=== PATIENT | male | born 1980 | race Caucasian/White ===

== ENCOUNTER 2017-02-04 14:20 | Emergency (ER) | payer OTHER ==
[~2017-02-04] VITALS: Wt 102.1 kg
[~2017-02-04 14:20] MED LIST: "\\\"BP PILL\\\""; AMBIEN5 MG PO; ANAPROX DS550 MG PO; ASCRIPTIN1 TAB PO; ASPI-COR81 M1 PO; ATIVAN1 MG PO; BACTRIM DS 8001 TA1 PO; COREG CR20 MG PO; CYCLOBENZAPRINE10 MG PO; DARVOCET N 1001 TAB PO; FLEXERIL10 MG PO; HUMALOG100 U/ML SC; HUMULIN 70/30 703 M1 SQ; HYCODAN/HYDROMET5 ML PO; HYDROCODONE BIT1 T11 PO; IBU-8800 MG PO; KEFLEX500 MG PO; LANTUS100 U/ML SC; LIPITOR10 MG PO; LISINOPRIL; LISINOPRIL10 MG PO; LISINOPRIL5 MG PO; MEDROL DOSEPAK4 MG PO; MOBIC; MOBIC7.5 MG PO; MOTRIN800 MG PO; PRINIVIL10 MG PO; ROBAXIN500 MG PO; VICODIN 5/500 505 MG PO; VICODIN ES 7501 TAB PO; XANAX; XANAX0.5 MG PO; XANAX1 MG PO; ZITHROMAX Z PA250 MG PO; ZOFRAN ODT8 MG PO
[2017-02-04] MEDS ORDERED: HYDROCODONE BIT1 T11 PO (16:17)
== END 2017-02-04 16:27 | disposition home or self-care (01) ==
LOC: ED 14:20
DX: G89.29 Other chronic pain (principal); M54.5 Low back pain; F17.200 Nicotine dependence, unspecified, uncomplicated; Z90.49 Acquired absence of other specified parts of digestive tract; Z98.890 Other specified postprocedural states; Z79.899 Other long term (current) drug therapy

== ENCOUNTER 2017-02-17 15:53 | Inpatient (IN) | payer OTHER ==
[~2017-02-17] VITALS: Ht 182.8 cm; Wt 104.8 kg
[2017-02-17 15:58] VITALS: BP 126/84
[2017-02-17 16:46] LABS: BASO % 0.1 % (0.0-1.0); EOS % 0.2 % (1.0-4.0); HEMATOCRIT 44.3 % (42.0-52.0); HEMOGLOBIN 15.8 g/dl (14.0-18.0); IG # 0.1 10*3/uL (0.0-0.1); LYMPH # 1.1 10*3/uL (1.3-4.4); LYMPH % 9.5 % (27.0-41.0); MEAN CELL VOLUME 82.8 fl (80.0-94.0); MEAN CORPUSCULAR HGB 29.5 pg (27.0-31.0); MEAN CORPUSCULAR HGB CONC 35.7 g/dl (33.0-37.0); MEAN PLATELET VOLUME 9.8 fl (9.6-12.3); MONO # 0.9 10*3/uL (0.1-1.0); MONO % 8.1 % (3.0-9.0); NEUT # 9.5 10*3/uL (2.3-7.9); NEUT % 81.7 % (47.0-73.0); PLATELET COUNT AUTOMATED 214 10*3/uL (130-400); RED BLOOD COUNT 5.35 10*6/uL (4.50-5.90); RED CELL DISTRI WIDTH 11.9 % (0-14.5); WHITE BLOOD COUNT 11.6 10*3/uL (4.8-10.8)
[2017-02-17 16:53] LABS: BILIRUBIN NEGATIVE (NEGATIVE); BLOOD NEGATIVE (NEGATIVE); CLARITY CLEAR (CLEAR); COLOR YELLOW (YELLOW); GLUCOSE 3+ (NEGATIVE); KETONE NEGATIVE (NEGATIVE); LEUKO ESTERASE NEGATIVE (NEGATIVE); NITRITE NEGATIVE (NEGATIVE); PH 5.5 (5.0-9.0); PROTEIN NEGATIVE (NEGATIVE); SPECIFIC GRAVITY <= 1.005 (1.005-1.030); UROBILINOGEN 0.2 E.U./dl (0.2-1.0)
[2017-02-17 17:05] LABS: BACTERIA TRACE; URINE REFLEX COMMENT NO (NO); WBC 0-2 wbc/hpf (0-5)
[2017-02-17 17:06] LABS: ALBUMIN 3.6 gm/dl (3.1-4.5); ALKALINE PHOSPHATASE 174 U/L (45-117); BILIRUBIN, TOTAL 0.6 mg/dl (0.2-1.0); BUN 13 mg/dl (7-24); CARBON DIOXIDE 23 mmol/L (21-32); CHLORIDE 93 mmol/L (98-107); EST GLOM FILT AFRICAN AMERICAN > 60 ml/min; POTASSIUM 4.5 mmol/L (3.5-5.1); SGOT/AST 15 IU/L (3-35); SGPT/ALT 34 U/L (12-78); SODIUM 126 mmol/L (136-145); TOTAL PROTEIN 7.4 gm/dL (6.4-8.2)
[2017-02-17 17:24] LABS: GLUCOSE 557 mg/dL (65-99)
[2017-02-17 18:44] LABS: LA>2 REFLEX 2 HR DRAW NOW
[2017-02-17 21:14] VITALS: BP 124/82
[2017-02-17 21:55] VITALS: BP 134/77
[2017-02-17 22:24] LABS: BUN 13 mg/dl (7-24); CARBON DIOXIDE 23 mmol/L (21-32); CHLORIDE 103 mmol/L (98-107); EST GLOM FILT AFRICAN AMERICAN > 60 ml/min; GLUCOSE 397 mg/dL (65-99); POTASSIUM 4.7 mmol/L (3.5-5.1); SODIUM 134 mmol/L (136-145)
[2017-02-17] MEDS ORDERED: HUMALOG100 UNIT/1 SQ (23:24)
[2017-02-17] MEDS ORDERED: INVOKANA100 M1 PO (23:26)
[2017-02-18] VITALS: BP 102/69
[2017-02-18 01:03] LABS: BUN 11 mg/dl (7-24); CARBON DIOXIDE 25 mmol/L (21-32); CHLORIDE 106 mmol/L (98-107); EST GLOM FILT AFRICAN AMERICAN > 60 ml/min; GLUCOSE 207 mg/dL (65-99); POTASSIUM 3.9 mmol/L (3.5-5.1); SODIUM 137 mmol/L (136-145)
[2017-02-18 03:15] LABS: BUN 12 mg/dl (7-24); CARBON DIOXIDE 27 mmol/L (21-32); CHLORIDE 107 mmol/L (98-107); EST GLOM FILT AFRICAN AMERICAN > 60 ml/min; GLUCOSE 121 mg/dL (65-99); POTASSIUM 3.7 mmol/L (3.5-5.1); SODIUM 142 mmol/L (136-145)
[2017-02-18 06:24] LABS: BASO # 0.1 10*3/uL (0.0-0.1); BASO % 0.6 % (0.0-1.0); EOS # 0.2 10*3/uL (0.0-0.4); EOS % 1.8 % (1.0-4.0); HEMATOCRIT 43.2 % (42.0-52.0); HEMOGLOBIN 14.6 g/dl (14.0-18.0); LYMPH # 1.8 10*3/uL (1.3-4.4); LYMPH % 20.8 % (27.0-41.0); MEAN CELL VOLUME 84.2 fl (80.0-94.0); MEAN CORPUSCULAR HGB 28.5 pg (27.0-31.0); MEAN CORPUSCULAR HGB CONC 33.8 g/dl (33.0-37.0); MEAN PLATELET VOLUME 9.7 fl (9.6-12.3); MONO # 1.2 10*3/uL (0.1-1.0); NEUT # 5.3 10*3/uL (2.3-7.9); NEUT % 62.4 % (47.0-73.0); PLATELET COUNT AUTOMATED 220 10*3/uL (130-400); RED BLOOD COUNT 5.13 10*6/uL (4.50-5.90); RED CELL DISTRI WIDTH 12.1 % (0-14.5); WHITE BLOOD COUNT 8.5 10*3/uL (4.8-10.8)
[2017-02-18 06:58] LABS: ALBUMIN 3.1 gm/dl (3.1-4.5); ALKALINE PHOSPHATASE 115 U/L (45-117); BILIRUBIN, TOTAL 0.3 mg/dl (0.2-1.0); BUN 13 mg/dl (7-24); CARBON DIOXIDE 26 mmol/L (21-32); CHLORIDE 110 mmol/L (98-107); CHOLESTEROL 148 mg/dL (<200); EST GLOM FILT AFRICAN AMERICAN > 60 ml/min; FREE T4 0.94 ng/dl (0.76-1.46); GLUCOSE 93 mg/dL (65-99); MAGNESIUM 2.2 mg/dL (1.5-2.1); PHOSPHOROUS 3.5 mg/dL (2.5-4.9); POTASSIUM 3.9 mmol/L (3.5-5.1); PROTHROMBIN TIME 10.3 SECONDS (9.0-12.4); SGOT/AST 16 IU/L (3-35); SGPT/ALT 28 U/L (12-78); SODIUM 143 mmol/L (136-145); TOTAL PROTEIN 6.6 gm/dL (6.4-8.2); TRIGLYCERIDES 219 mg/dl (<150); VLDL CHOLESTEROL 44 mg/dL (6-40)
[2017-02-18 07:02] LABS: HDL CHOLESTEROL 39 mg/dl (40-60); LDL CHOLESTEROL 65 mg/dL (9-159)
[2017-02-18 07:21] LABS: HEMOGLOBIN A1c 10.9 % (4.8-5.6)
[2017-02-18 07:51] LABS: FOLIC ACID 21.32 ng/mL (>5.38); VITAMIN D, 25-HYDROXY 22.9 ng/mL (30-100)
[2017-02-18 08:00] VITALS: BP 125/66
[2017-02-18] MEDS ORDERED: POLYTRIM 1000010 ML OPH (10:54)
== END 2017-02-18 12:11 | disposition home or self-care (01) | DRG 391 ==
LOC: ED 15:53 → EDHOLD 20:23 → 5E 20:23 → EDHOLD 21:23 → 5E 21:34
PROVIDERS: Internal Medicine; Physician Assistant
DX: A08.4 Viral intestinal infection, unspecified (principal); E11.00 Type 2 diabetes mellitus with hyperosmolarity without nonketotic hyperglycemic-hyperosmolar coma (NKHHC); E44.0 Moderate protein-calorie malnutrition; R65.10 Systemic inflammatory response syndrome (SIRS) of non-infectious origin without acute organ dysfunction; E87.1 Hypo-osmolality and hyponatremia; H10.33 Unspecified acute conjunctivitis, bilateral; M54.16 Radiculopathy, lumbar region; F41.9 Anxiety disorder, unspecified; E86.0 Dehydration; K59.00 Constipation, unspecified; K58.0 Irritable bowel syndrome with diarrhea; K29.70 Gastritis, unspecified, without bleeding; Z79.4 Long term (current) use of insulin; Z90.49 Acquired absence of other specified parts of digestive tract; Z82.49 Family history of ischemic heart disease and other diseases of the circulatory system; Z79.899 Other long term (current) drug therapy; Z68.31 Body mass index [BMI] 31.0-31.9, adult

== ENCOUNTER → 2017-05-29 | Day surgery (SDC) | payer OTHER ==
[~2017-05-29] VITALS: Ht 185.4 cm; Wt 103.0 kg
[~2017-05-29] MED LIST changes: +BASAGLAR K100 UNIT/1 SC; +HUMALOG100 UNIT/1 SQ; +INVOKANA100 M1 PO; +NORCO 5-325 TA1 EACH PO; +POLYTRIM 1000010 ML OPH
--- NOTE | ~2017-05-29 | PROC NOTE ---
[place], [place] PROCEDURE NOTE NAME: MAIRA BERGER JR [facility] #: [id number] UNIT #: [id number] ROOM: DOCTOR: KEHINDE HEARD MD BIRTHDATE: [birth year] DOS: 05/29/2017 PREOPERATIVE DIAGNOSIS: Back sebaceous cyst. POSTOPERATIVE DIAGNOSIS: Back sebaceous cyst. PROCEDURE: Excision of back sebaceous cyst. SURGEON: Kehinde Heard MD PROFESSIONAL CASTER: [id number] ANESTHESIA: MAC with local. INDICATIONS: This is a 37-year-old gentleman with a history of back sebaceous cyst who was here for the above-mentioned procedure. The procedure and its complications were explained to the patient in detail preoperatively. Complications that were discussed included but were not limited to, bleeding, infection and prolonged pain. He agreed to proceed. DESCRIPTION OF PROCEDURE: After identifying the patient, the patient was brought to the operating suite and laid in a right lateral position. After time-out procedure was called, the parts were then painted and draped in the usual sterile fashion. A transverse incision was made, which was deepened in layers. The cyst was excised in its entirety, after adequate dissection from the surrounding structures and sent for histopathological diagnosis. Hemostasis was achieved with the help of electrocautery. Thereafter, the subcutaneous tissue was irrigated and approximated with the help of 3-0 Vicryl in an interrupted fashion and the skin edges were approximated with the help of 4-0 Vicryl in a subcuticular running fashion. Dressing was placed. The patient tolerated the procedure well and was taken to the recovery room in stable fashion. There were no complications. Dr. Kehinde Heard, the attending surgeon, was present throughout the operating case. Kehinde Heard MD CM:PROCNOTE:PROCEDURE NOTE [id number] KEHINDE HEARD MD
[2017-05-29 08:50] VITALS: BP 128/71
[2017-05-29 10:00] VITALS: BP 110/33
[2017-05-29 10:15] VITALS: BP 115/78
[2017-05-29 10:25] VITALS: BP 120/68
== END | disposition home or self-care (01) ==
LOC: SDC 05-28 11:00
DX: L72.0 Epidermal cyst (principal); I10 Essential (primary) hypertension; E11.9 Type 2 diabetes mellitus without complications; K21.9 Gastro-esophageal reflux disease without esophagitis; J45.909 Unspecified asthma, uncomplicated; Z87.01 Personal history of pneumonia (recurrent); F17.210 Nicotine dependence, cigarettes, uncomplicated; Z98.890 Other specified postprocedural states; Z82.49 Family history of ischemic heart disease and other diseases of the circulatory system; Z80.9 Family history of malignant neoplasm, unspecified; Z82.3 Family history of stroke

== ENCOUNTER 2017-08-19 23:03 | Emergency (ER) | payer OTHER ==
[~2017-08-19] VITALS: Wt 104.3 kg
[2017-08-19 23:25] LABS: BASO # 0.1 10*3/uL (0.0-0.1); BASO % 0.5 % (0.0-1.0); EOS # 0.1 10*3/uL (0.0-0.4); EOS % 1.5 % (1.0-4.0); HEMATOCRIT 46.3 % (42.0-52.0); HEMOGLOBIN 16.3 g/dl (14.0-18.0); LYMPH # 2.6 10*3/uL (1.3-4.4); LYMPH % 27.6 % (27.0-41.0); MEAN CELL VOLUME 81.9 fl (80.0-94.0); MEAN CORPUSCULAR HGB 28.8 pg (27.0-31.0); MEAN CORPUSCULAR HGB CONC 35.2 g/dl (33.0-37.0); MEAN PLATELET VOLUME 9.4 fl (9.6-12.3); MONO # 1.1 10*3/uL (0.1-1.0); MONO % 12.1 % (3.0-9.0); NEUT # 5.4 10*3/uL (2.3-7.9); PLATELET COUNT AUTOMATED 295 10*3/uL (130-400); RED BLOOD COUNT 5.65 10*6/uL (4.50-5.90); RED CELL DISTRI WIDTH 12.1 % (0-14.5); WHITE BLOOD COUNT 9.3 10*3/uL (4.8-10.8)
[2017-08-19 23:38] VITALS: BP 130/73
[2017-08-19 23:43] LABS: ACT PARTIAL THROMBO TIME 23.4 SECONDS (20.8-31.5); ALBUMIN 3.9 gm/dl (3.1-4.5); ALKALINE PHOSPHATASE 178 U/L (45-117); BUN 22 mg/dl (7-24); CHLORIDE 100 mmol/L (98-107); LIPASE 144 U/L (73-393); POTASSIUM 3.7 mmol/L (3.5-5.1); SGOT/AST 22 IU/L (3-35); SGPT/ALT 48 U/L (12-78); SODIUM 136 mmol/L (136-145)
[2017-08-19 23:44] LABS: TROPONIN I < 0.015 ng/ml (<0.045)
== END 2017-08-20 02:39 | disposition home or self-care (01) ==
LOC: ED 23:03
PROVIDERS: Physician Assistant
DX: R10.13 Epigastric pain (principal); F17.200 Nicotine dependence, unspecified, uncomplicated; Z79.4 Long term (current) use of insulin; Z79.899 Other long term (current) drug therapy; Z90.49 Acquired absence of other specified parts of digestive tract

== ENCOUNTER → 2017-10-05 | Outpatient (CLI) | payer OTHER ==
[2017-10-05 08:56] LABS: ALBUMIN 3.7 gm/dl (3.1-4.5); BUN 16 mg/dl (7-24); CHLORIDE 103 mmol/L (98-107); POTASSIUM 3.8 mmol/L (3.5-5.1); SODIUM 139 mmol/L (136-145)
[2017-10-05 09:07] LABS: ALKALINE PHOSPHATASE 145 U/L (45-117); CREATININE 0.73 mg/dL (0.70-1.30); SGOT/AST 21 IU/L (3-35); SGPT/ALT 35 U/L (12-78); TOTAL PROTEIN 7.3 gm/dL (6.4-8.2)
[2017-10-07 16:13] LABS: GLUTAMIC ACID DECARB AB 143008 10.1 U/mL (0.0-5.0)
== END | disposition home or self-care (01) ==
LOC: LAB 07:09
DX: E11.649 Type 2 diabetes mellitus with hypoglycemia without coma (principal)

== ENCOUNTER 2017-11-09 21:55 | Emergency (ER) | payer SELFPAY ==
[~2017-11-09] VITALS: Ht 182.8 cm; Wt 99.8 kg
[2017-11-09 22:01] VITALS: BP 123/70
== END 2017-11-09 23:24 | disposition left against medical advice (07) ==
LOC: ED 21:55
DX: G89.29 Other chronic pain (principal); M54.40 Lumbago with sciatica, unspecified side; F17.200 Nicotine dependence, unspecified, uncomplicated

== ENCOUNTER 2017-11-11 09:24 | Emergency (ER) | payer SELFPAY ==
[~2017-11-11] VITALS: Ht 182.8 cm; Wt 99.8 kg
[2017-11-11] MEDS ORDERED: IBU800 MG PO (09:36)
[2017-11-11] MEDS ORDERED: MOBIC7.5 MG PO (09:36)
[2017-11-11 10:41] LABS: BASO % 0.5 % (0.0-1.0); EOS # 0.1 10*3/uL (0.0-0.4); EOS % 1.1 % (1.0-4.0); LYMPH # 1.9 10*3/uL (1.3-4.4); LYMPH % 25.4 % (27.0-41.0); MEAN CELL VOLUME 83.5 fl (80.0-94.0); MEAN CORPUSCULAR HGB 29.1 pg (27.0-31.0); MEAN CORPUSCULAR HGB CONC 34.9 g/dl (33.0-37.0); MEAN PLATELET VOLUME 9.7 fl (9.6-12.3); MONO # 0.5 10*3/uL (0.1-1.0); MONO % 6.6 % (3.0-9.0); PLATELET COUNT AUTOMATED 247 10*3/uL (130-400); RED BLOOD COUNT 5.15 10*6/uL (4.50-5.90); RED CELL DISTRI WIDTH 12.4 % (0-14.5); WHITE BLOOD COUNT 7.5 10*3/uL (4.8-10.8)
[2017-11-11 10:56] LABS: ALBUMIN 3.6 gm/dl (3.1-4.5); ALKALINE PHOSPHATASE 202 U/L (45-117); BUN 18 mg/dl (7-24); CHLORIDE 99 mmol/L (98-107); CREATININE 0.92 mg/dL (0.70-1.30); LIPASE 137 U/L (73-393); POTASSIUM 4.5 mmol/L (3.5-5.1); SGOT/AST 27 IU/L (3-35); SGPT/ALT 44 U/L (12-78); SODIUM 134 mmol/L (136-145); TOTAL PROTEIN 7.4 gm/dL (6.4-8.2)
[2017-11-11 11:36] LABS: BILIRUBIN NEGATIVE (NEGATIVE); BLOOD NEGATIVE (NEGATIVE); CLARITY CLEAR (CLEAR); COLOR YELLOW (YELLOW); GLUCOSE 3+ (NEGATIVE); KETONE NEGATIVE (NEGATIVE); LEUKO ESTERASE NEGATIVE (NEGATIVE); NITRITE NEGATIVE (NEGATIVE); PH 5.5 (5.0-9.0); SPECIFIC GRAVITY <= 1.005 (1.005-1.030); UROBILINOGEN 0.2 E.U./dl (0.2-1.0)
[2017-11-11 11:44] LABS: RBC 0-2 rbc/hpf (0-2)
[2017-11-11 11:48] LABS: URINE AMPHETAMINES < 1000 (1000ng/ml); URINE BARBITURATES < 200 (200ng/ml); URINE BENZODIAZEPINES < 200 (200ng/ml); URINE CANNABINOIDS (THC) < 50 (50ng/ml); URINE COCAINE < 300 (300ng/ml); URINE METHADONE < 300 (300ng/ml); URINE OPIATES < 300 (300ng/ml)
[2017-11-11 11:49] LABS: URINE PHENCYCLIDINE < 25 (25ng/ml)
[2017-11-11 11:56] VITALS: BP 121/79
== END 2017-11-11 13:26 | disposition home or self-care (01) ==
LOC: ED 09:24
PROVIDERS: Emergency Medicine
DX: M54.41 Lumbago with sciatica, right side (principal); M54.42 Lumbago with sciatica, left side; E10.65 Type 1 diabetes mellitus with hyperglycemia; G89.29 Other chronic pain; F17.200 Nicotine dependence, unspecified, uncomplicated; Z90.49 Acquired absence of other specified parts of digestive tract; Z98.890 Other specified postprocedural states; Z79.4 Long term (current) use of insulin; Z79.899 Other long term (current) drug therapy

== ENCOUNTER → 2017-11-18 | Outpatient (CLI) | payer SELFPAY ==
[~2017-11-18] MED LIST changes: +IBU800 MG PO
[2017-11-18 12:53] LABS: LIPASE 112 U/L (73-393)
== END | disposition home or self-care (01) ==
LOC: LAB 00:43 → RESCLI 00:43
PROVIDERS: Internal Medicine
DX: E10.9 Type 1 diabetes mellitus without complications (principal); G62.9 Polyneuropathy, unspecified

== ENCOUNTER → 2017-11-26 | Outpatient (CLI) | payer SELFPAY | END | disposition home or self-care (01) | LOC: MRI 12:56 | DX: M48.05 Spinal stenosis, thoracolumbar region (principal); G62.9 Polyneuropathy, unspecified; M51.25 Other intervertebral disc displacement, thoracolumbar region ==

== ENCOUNTER → 2017-12-01 | Outpatient (CLI) | payer SELFPAY | END | disposition home or self-care (01) | LOC: RESCLI 03:13 | DX: M48.061 Spinal stenosis, lumbar region without neurogenic claudication (principal); G62.9 Polyneuropathy, unspecified; M54.32 Sciatica, left side; E78.2 Mixed hyperlipidemia; E10.9 Type 1 diabetes mellitus without complications; E55.9 Vitamin D deficiency, unspecified; F17.200 Nicotine dependence, unspecified, uncomplicated; Z71.6 Tobacco abuse counseling ==

== ENCOUNTER → 2017-12-08 | Outpatient (CLI) | payer SELFPAY | END | disposition home or self-care (01) | LOC: RESCLI 09:43 | DX: M48.061 Spinal stenosis, lumbar region without neurogenic claudication (principal); G62.9 Polyneuropathy, unspecified; M54.32 Sciatica, left side; E78.2 Mixed hyperlipidemia; E10.9 Type 1 diabetes mellitus without complications; E55.9 Vitamin D deficiency, unspecified; E66.01 Morbid (severe) obesity due to excess calories; M62.830 Muscle spasm of back; Z68.41 Body mass index [BMI] 40.0-44.9, adult; F17.200 Nicotine dependence, unspecified, uncomplicated ==

== ENCOUNTER 2017-12-30 09:09 | Emergency (ER) | payer OTHER ==
[~2017-12-30] VITALS: Wt 99.8 kg
[2017-12-30 09:29] VITALS: BP 138/96
== END 2017-12-30 10:04 | disposition home or self-care (01) ==
LOC: ED 09:09
DX: M54.5 Low back pain (principal); R03.0 Elevated blood-pressure reading, without diagnosis of hypertension; F17.210 Nicotine dependence, cigarettes, uncomplicated; Z90.49 Acquired absence of other specified parts of digestive tract; Z98.890 Other specified postprocedural states; Z79.899 Other long term (current) drug therapy; Z79.4 Long term (current) use of insulin

== ENCOUNTER 2018-01-03 23:15 | Inpatient (IN) | payer OTHER ==
[~2018-01-03] VITALS: Ht 182.8 cm; Wt 102.1 kg
[2018-01-03 23:35] VITALS: BP 123/76
[2018-01-03] MEDS ORDERED: NEURONTIN300 MG PO (23:44)
[2018-01-03] MEDS ORDERED: LANTUS SOL100 UNIT/1 SQ (23:45)
[2018-01-04] VITALS (7 sets, daily range): BP systolic 115–136; BP diastolic 65–92
[2018-01-04 00:25] LABS: BASO % 0.4 % (0.0-1.0); EOS # 0.1 10*3/uL (0.0-0.4); EOS % 1.3 % (1.0-4.0); HEMATOCRIT 42.4 % (42.0-52.0); HEMOGLOBIN 15.4 g/dl (14.0-18.0); LYMPH # 1.6 10*3/uL (1.3-4.4); LYMPH % 21.2 % (27.0-41.0); MEAN CORPUSCULAR HGB 29.8 pg (27.0-31.0); MEAN CORPUSCULAR HGB CONC 36.3 g/dl (33.0-37.0); MEAN PLATELET VOLUME 9.7 fl (9.6-12.3); MONO # 0.7 10*3/uL (0.1-1.0); MONO % 8.8 % (3.0-9.0); NEUT # 5.1 10*3/uL (2.3-7.9); PLATELET COUNT AUTOMATED 249 10*3/uL (130-400); RED BLOOD COUNT 5.17 10*6/uL (4.50-5.90); RED CELL DISTRI WIDTH 11.9 % (0-14.5); WHITE BLOOD COUNT 7.5 10*3/uL (4.8-10.8)
[2018-01-04 00:40] LABS: ALBUMIN 3.6 gm/dl (3.1-4.5); ALKALINE PHOSPHATASE 239 U/L (45-117); BUN 19 mg/dl (7-24); CHLORIDE 90 mmol/L (98-107); CREATININE 1.01 mg/dL (0.70-1.30); POTASSIUM 4.9 mmol/L (3.5-5.1); SGOT/AST 24 IU/L (3-35); SGPT/ALT 47 U/L (12-78); SODIUM 125 mmol/L (136-145); TOTAL PROTEIN 7.1 gm/dL (6.4-8.2)
[2018-01-04 01:55] LABS: BILIRUBIN NEGATIVE (NEGATIVE); BLOOD NEGATIVE (NEGATIVE); CLARITY CLEAR (CLEAR); COLOR YELLOW (YELLOW); GLUCOSE 3+ (NEGATIVE); KETONE NEGATIVE (NEGATIVE); LEUKO ESTERASE NEGATIVE (NEGATIVE); NITRITE NEGATIVE (NEGATIVE); PH 5.5 (5.0-9.0); SPECIFIC GRAVITY <= 1.005 (1.005-1.030); UROBILINOGEN 0.2 E.U./dl (0.2-1.0)
[2018-01-04 02:08] LABS: WBC 0-2 wbc/hpf (0-5)
[2018-01-04 06:30] LABS: BASO % 0.5 % (0.0-1.0); EOS # 0.2 10*3/uL (0.0-0.4); EOS % 1.9 % (1.0-4.0); HEMATOCRIT 44.9 % (42.0-52.0); HEMOGLOBIN 16.1 g/dl (14.0-18.0); LYMPH # 2.2 10*3/uL (1.3-4.4); LYMPH % 26.3 % (27.0-41.0); MEAN CELL VOLUME 81.8 fl (80.0-94.0); MEAN CORPUSCULAR HGB 29.3 pg (27.0-31.0); MEAN CORPUSCULAR HGB CONC 35.9 g/dl (33.0-37.0); MEAN PLATELET VOLUME 9.5 fl (9.6-12.3); MONO # 0.9 10*3/uL (0.1-1.0); MONO % 10.4 % (3.0-9.0); NEUT # 5.1 10*3/uL (2.3-7.9); NEUT % 60.7 % (47.0-73.0); PLATELET COUNT AUTOMATED 274 10*3/uL (130-400); RED BLOOD COUNT 5.49 10*6/uL (4.50-5.90); RED CELL DISTRI WIDTH 11.9 % (0-14.5); WHITE BLOOD COUNT 8.4 10*3/uL (4.8-10.8)
[2018-01-04 06:38] LABS: ACT PARTIAL THROMBO TIME 22.8 SECONDS (20.8-31.5); INTERNATIONAL NORM RATIO 0.9 (2.0-3.5)
[2018-01-04 07:00] LABS: BUN 17 mg/dl (7-24); CHLORIDE 103 mmol/L (98-107); CREATININE 0.62 mg/dL (0.70-1.30); SODIUM 136 mmol/L (136-145)
[2018-01-04 07:05] LABS: PHOSPHOROUS 2.6 mg/dL (2.5-4.9)
[2018-01-04 07:10] LABS: THYROID STIM HORMONE (HS) 1.56 uIU/ml (0.358-4.75)
[2018-01-04 07:21] LABS: POTASSIUM 3.2 mmol/L (3.5-5.1)
[2018-01-04 07:41] LABS: VITAMIN D, 25-HYDROXY 10.6 ng/mL (30-100)
[2018-01-04 10:12] LABS: BUN 16 mg/dl (7-24); CHLORIDE 105 mmol/L (98-107); CREATININE 0.65 mg/dL (0.70-1.30); POTASSIUM 3.6 mmol/L (3.5-5.1); SODIUM 138 mmol/L (136-145)
[2018-01-04 14:31] LABS: BUN 13 mg/dl (7-24); CHLORIDE 106 mmol/L (98-107); CREATININE 0.68 mg/dL (0.70-1.30); POTASSIUM 3.8 mmol/L (3.5-5.1); SODIUM 140 mmol/L (136-145)
[2018-01-05] VITALS: BP 126/76
[2018-01-05 05:59] LABS: BASO % 0.4 % (0.0-1.0); EOS # 0.1 10*3/uL (0.0-0.4); EOS % 1.7 % (1.0-4.0); HEMOGLOBIN 16.1 g/dl (14.0-18.0); LYMPH # 1.7 10*3/uL (1.3-4.4); LYMPH % 22.7 % (27.0-41.0); MEAN CELL VOLUME 84.6 fl (80.0-94.0); MEAN CORPUSCULAR HGB 29.6 pg (27.0-31.0); MEAN PLATELET VOLUME 9.6 fl (9.6-12.3); MONO # 0.7 10*3/uL (0.1-1.0); MONO % 9.2 % (3.0-9.0); NEUT # 4.9 10*3/uL (2.3-7.9); NEUT % 65.6 % (47.0-73.0); PLATELET COUNT AUTOMATED 249 10*3/uL (130-400); RED BLOOD COUNT 5.44 10*6/uL (4.50-5.90); RED CELL DISTRI WIDTH 12.5 % (0-14.5); WHITE BLOOD COUNT 7.4 10*3/uL (4.8-10.8)
[2018-01-05 06:06] LABS: ALBUMIN 3.5 gm/dl (3.1-4.5); ALKALINE PHOSPHATASE 151 U/L (45-117); BUN 15 mg/dl (7-24); CHLORIDE 102 mmol/L (98-107); CREATININE 0.78 mg/dL (0.70-1.30); POTASSIUM 4.4 mmol/L (3.5-5.1); SGOT/AST 35 IU/L (3-35); SGPT/ALT 45 U/L (12-78); SODIUM 136 mmol/L (136-145); TOTAL PROTEIN 7.1 gm/dL (6.4-8.2)
[2018-01-05 08:00] VITALS: BP 118/77
[2018-01-05 12:00] VITALS: BP 116/71
[2018-01-06] MEDS ORDERED: LEVEMIR FL100 UNIT/1 SQ ×2 (21:00)
== END 2018-01-05 14:00 | disposition home or self-care (01) | DRG 638 ==
LOC: ED 23:15 → EDHOLD 01-04 01:15 → 4E 01-04 01:15 → ICCU 01-04 01:19 → 4E 01-04 22:26
PROVIDERS: Internal Medicine; Internal Medicine Hospice and Palliative Medicine; Student in an Organized Health Care Education/Training Program
DX: E13.10 Other specified diabetes mellitus with ketoacidosis without coma (principal); E87.1 Hypo-osmolality and hyponatremia; E87.8 Other disorders of electrolyte and fluid balance, not elsewhere classified; K50.919 Crohn's disease, unspecified, with unspecified complications; E13.00 Other specified diabetes mellitus with hyperosmolarity without nonketotic hyperglycemic-hyperosmolar coma (NKHHC); E87.6 Hypokalemia; E66.09 Other obesity due to excess calories; Z79.899 Other long term (current) drug therapy; F41.9 Anxiety disorder, unspecified; M54.5 Low back pain; G89.29 Other chronic pain; E55.9 Vitamin D deficiency, unspecified; D72.810 Lymphocytopenia; Z90.89 Acquired absence of other organs; Z82.49 Family history of ischemic heart disease and other diseases of the circulatory system; Z80.9 Family history of malignant neoplasm, unspecified; Z82.3 Family history of stroke; Z72.0 Tobacco use; Z90.49 Acquired absence of other specified parts of digestive tract; Z68.30 Body mass index [BMI] 30.0-30.9, adult; Z79.4 Long term (current) use of insulin

== ENCOUNTER 2018-01-06 20:49 | Emergency (ER) | payer OTHER ==
[~2018-01-06] VITALS: Ht 182.8 cm; Wt 102.1 kg
[~2018-01-06 20:49] MED LIST changes: +LANTUS SOL100 UNIT/1 SQ; +NEURONTIN300 MG PO
[2018-01-06] MEDS ORDERED: LEVEMIR FL100 UNIT/1 SQ ×2 (21:00)
[2018-01-06 21:20] LABS: BASO % 0.4 % (0.0-1.0); EOS # 0.1 10*3/uL (0.0-0.4); EOS % 1.6 % (1.0-4.0); HEMATOCRIT 44.5 % (42.0-52.0); HEMOGLOBIN 15.5 g/dl (14.0-18.0); LYMPH # 1.8 10*3/uL (1.3-4.4); LYMPH % 24.6 % (27.0-41.0); MEAN CELL VOLUME 83.5 fl (80.0-94.0); MEAN CORPUSCULAR HGB 29.1 pg (27.0-31.0); MEAN CORPUSCULAR HGB CONC 34.8 g/dl (33.0-37.0); MEAN PLATELET VOLUME 9.7 fl (9.6-12.3); MONO # 0.8 10*3/uL (0.1-1.0); MONO % 10.6 % (3.0-9.0); NEUT # 4.6 10*3/uL (2.3-7.9); NEUT % 62.5 % (47.0-73.0); PLATELET COUNT AUTOMATED 244 10*3/uL (130-400); RED BLOOD COUNT 5.33 10*6/uL (4.50-5.90); RED CELL DISTRI WIDTH 12.1 % (0-14.5); WHITE BLOOD COUNT 7.4 10*3/uL (4.8-10.8)
[2018-01-06 21:36] LABS: ALBUMIN 3.5 gm/dl (3.1-4.5); ALKALINE PHOSPHATASE 180 U/L (45-117); BUN 17 mg/dl (7-24); CHLORIDE 101 mmol/L (98-107); CREATININE 0.85 mg/dL (0.70-1.30); LIPASE 123 U/L (73-393); POTASSIUM 4.3 mmol/L (3.5-5.1); SGOT/AST 23 IU/L (3-35); SGPT/ALT 43 U/L (12-78); SODIUM 136 mmol/L (136-145); TOTAL PROTEIN 7.2 gm/dL (6.4-8.2)
[2018-01-06 22:26] LABS: BILIRUBIN NEGATIVE (NEGATIVE); BLOOD NEGATIVE (NEGATIVE); CLARITY CLEAR (CLEAR); COLOR YELLOW (YELLOW); GLUCOSE 3+ (NEGATIVE); KETONE NEGATIVE (NEGATIVE); LEUKO ESTERASE NEGATIVE (NEGATIVE); NITRITE NEGATIVE (NEGATIVE); UROBILINOGEN 0.2 E.U./dl (0.2-1.0)
[2018-01-06 23:49] VITALS: BP 114/72
== END 2018-01-07 00:14 | disposition home or self-care (01) ==
LOC: ED 20:49
PROVIDERS: Emergency Medicine Emergency Medical Services
DX: E10.9 Type 1 diabetes mellitus without complications (principal); R10.9 Unspecified abdominal pain; M54.9 Dorsalgia, unspecified; R11.0 Nausea; F17.200 Nicotine dependence, unspecified, uncomplicated; Z79.4 Long term (current) use of insulin; Z79.899 Other long term (current) drug therapy

== ENCOUNTER 2018-01-14 13:03 | Emergency (ER) | payer OTHER ==
[~2018-01-14] VITALS: Ht 182.8 cm; Wt 99.8 kg
[~2018-01-14 13:03] MED LIST changes: +LEVEMIR FL100 UNIT/1 SQ
[2018-01-14 13:06] VITALS: BP 140/88
[2018-01-14 13:34] LABS: BASO # 0.1 10*3/uL (0.0-0.1); BASO % 0.5 % (0.0-1.0); EOS # 0.1 10*3/uL (0.0-0.4); EOS % 0.7 % (1.0-4.0); HEMATOCRIT 43.7 % (42.0-52.0); HEMOGLOBIN 15.6 g/dl (14.0-18.0); LYMPH # 1.5 10*3/uL (1.3-4.4); LYMPH % 15.9 % (27.0-41.0); MEAN CELL VOLUME 82.1 fl (80.0-94.0); MEAN CORPUSCULAR HGB 29.3 pg (27.0-31.0); MEAN CORPUSCULAR HGB CONC 35.7 g/dl (33.0-37.0); MEAN PLATELET VOLUME 9.9 fl (9.6-12.3); MONO # 0.7 10*3/uL (0.1-1.0); MONO % 7.3 % (3.0-9.0); NEUT # 7.1 10*3/uL (2.3-7.9); NEUT % 75.3 % (47.0-73.0); PLATELET COUNT AUTOMATED 276 10*3/uL (130-400); RED BLOOD COUNT 5.32 10*6/uL (4.50-5.90); WHITE BLOOD COUNT 9.5 10*3/uL (4.8-10.8)
[2018-01-14 13:50] LABS: ALKALINE PHOSPHATASE 197 U/L (45-117); BUN 12 mg/dl (7-24); CHLORIDE 91 mmol/L (98-107); POTASSIUM 4.2 mmol/L (3.5-5.1); SGOT/AST 19 IU/L (3-35); SGPT/ALT 42 U/L (12-78); SODIUM 127 mmol/L (136-145); TOTAL PROTEIN 7.7 gm/dL (6.4-8.2)
[2018-01-14 14:06] LABS: BILIRUBIN NEGATIVE (NEGATIVE); BLOOD NEGATIVE (NEGATIVE); CLARITY CLEAR (CLEAR); COLOR YELLOW (YELLOW); GLUCOSE 3+ (NEGATIVE); KETONE NEGATIVE (NEGATIVE); LEUKO ESTERASE NEGATIVE (NEGATIVE); NITRITE NEGATIVE (NEGATIVE); SPECIFIC GRAVITY <= 1.005 (1.005-1.030); UROBILINOGEN 0.2 E.U./dl (0.2-1.0)
[2018-01-14 14:22] LABS: RBC 0-2 rbc/hpf (0-2); WBC 0-2 wbc/hpf (0-5)
[2018-01-14 14:23] LABS: BACTERIA 1+
== END 2018-01-14 14:24 | disposition left against medical advice (07) ==
LOC: ED 13:03 → EDHOLD 14:13 → ED 14:13
PROVIDERS: Nurse Practitioner Family
DX: E10.65 Type 1 diabetes mellitus with hyperglycemia (principal); F17.200 Nicotine dependence, unspecified, uncomplicated; E78.00 Pure hypercholesterolemia, unspecified; E66.9 Obesity, unspecified; Z79.899 Other long term (current) drug therapy; Z90.49 Acquired absence of other specified parts of digestive tract; Z98.890 Other specified postprocedural states; Z79.4 Long term (current) use of insulin

== ENCOUNTER → 2018-01-19 | Outpatient (CLI) | payer OTHER | END | disposition home or self-care (01) | LOC: RESCLI 00:31 | DX: E10.9 Type 1 diabetes mellitus without complications (principal); E78.2 Mixed hyperlipidemia; E55.9 Vitamin D deficiency, unspecified; M54.32 Sciatica, left side; F41.9 Anxiety disorder, unspecified ==

== ENCOUNTER → 2018-02-02 | Outpatient (CLI) | payer OTHER | END | disposition home or self-care (01) | LOC: RESCLI 07:53 | DX: F41.9 Anxiety disorder, unspecified (principal); E10.9 Type 1 diabetes mellitus without complications; M54.32 Sciatica, left side; E55.9 Vitamin D deficiency, unspecified; E78.2 Mixed hyperlipidemia; M25.562 Pain in left knee ==

== ENCOUNTER → 2018-03-01 | Outpatient (CLI) | payer OTHER | END | disposition home or self-care (01) | LOC: MRI 02:36 | DX: M62.89 Other specified disorders of muscle (principal); R42 Dizziness and giddiness; R25.1 Tremor, unspecified; R51 Headache; E11.9 Type 2 diabetes mellitus without complications ==

== ENCOUNTER → 2018-03-23 | Outpatient (CLI) | payer OTHER | END | disposition home or self-care (01) | LOC: RESCLI 08:57 | DX: E66.3 Overweight (principal); E11.9 Type 2 diabetes mellitus without complications; E78.5 Hyperlipidemia, unspecified; R51 Headache; R53.1 Weakness; R55 Syncope and collapse; R00.0 Tachycardia, unspecified; Z53.20 Procedure and treatment not carried out because of patient's decision for unspecified reasons; Z90.49 Acquired absence of other specified parts of digestive tract ==

== ENCOUNTER → 2018-07-06 | Outpatient (CLI) | payer OTHER ==
[~2018-07-06] MED LIST changes: +OMEPRAZOLE D/R20 MG PO
== END | disposition home or self-care (01) ==
LOC: RESCLI 03:41
DX: E78.2 Mixed hyperlipidemia (principal); K92.1 Melena; K50.911 Crohn's disease, unspecified, with rectal bleeding; E55.9 Vitamin D deficiency, unspecified; E10.9 Type 1 diabetes mellitus without complications; M54.5 Low back pain; K21.9 Gastro-esophageal reflux disease without esophagitis; R07.89 Other chest pain; R63.4 Abnormal weight loss; S92.902D Unspecified fracture of left foot, subsequent encounter for fracture with routine healing; W19.XXXD Unspecified fall, subsequent encounter; X58.XXXD Exposure to other specified factors, subsequent encounter; Z79.899 Other long term (current) drug therapy; Z79.82 Long term (current) use of aspirin; Z88.8 Allergy status to other drugs, medicaments and biological substances

== ENCOUNTER → 2018-08-12 | Outpatient (CLI) | payer OTHER | END | disposition home or self-care (01) | LOC: RESCLI 03:02 → SDC 17:05 → RESCLI 19:23 | DX: Z23 Encounter for immunization (principal); E55.9 Vitamin D deficiency, unspecified; E10.9 Type 1 diabetes mellitus without complications; E78.2 Mixed hyperlipidemia; K21.9 Gastro-esophageal reflux disease without esophagitis; M54.5 Low back pain; R63.4 Abnormal weight loss; F17.200 Nicotine dependence, unspecified, uncomplicated; Z79.899 Other long term (current) drug therapy; Z88.8 Allergy status to other drugs, medicaments and biological substances ==

== ENCOUNTER → 2018-09-13 | Outpatient (CLI) | payer OTHER ==
[2018-09-13 18:59] LABS: ALBUMIN 3.5 gm/dl (3.1-4.5); BUN 14 mg/dl (7-24); CHLORIDE 101 mmol/L (98-107); CHOLESTEROL 177 mg/dL (<200); CREATININE 0.85 mg/dL (0.70-1.30); HDL CHOLESTEROL 49 mg/dl (40-60); LDL CHOLESTEROL 57 mg/dL (9-159); SGOT/AST 46 IU/L (3-35); SGPT/ALT 53 U/L (12-78); SODIUM 134 mmol/L (136-145); TRIGLYCERIDES 354 mg/dl (<150); VLDL CHOLESTEROL 71 mg/dL (6-40)
[2018-09-13 19:07] LABS: BASO % 0.5 % (0.0-1.0); EOS # 0.1 10*3/uL (0.0-0.4); EOS % 1.8 % (1.0-4.0); HEMATOCRIT 41.4 % (42.0-52.0); HEMOGLOBIN 13.9 g/dl (14.0-18.0); LYMPH # 1.5 10*3/uL (1.3-4.4); MEAN CELL VOLUME 88.7 fl (80.0-94.0); MEAN CORPUSCULAR HGB 29.8 pg (27.0-31.0); MEAN CORPUSCULAR HGB CONC 33.6 g/dl (33.0-37.0); MEAN PLATELET VOLUME 9.7 fl (9.6-12.3); MONO # 0.5 10*3/uL (0.1-1.0); MONO % 7.7 % (3.0-9.0); NEUT # 4.5 10*3/uL (2.3-7.9); NEUT % 67.7 % (47.0-73.0); PLATELET COUNT AUTOMATED 271 10*3/uL (130-400); RED BLOOD COUNT 4.67 10*6/uL (4.50-5.90); RED CELL DISTRI WIDTH 12.4 % (0-14.5); WHITE BLOOD COUNT 6.6 10*3/uL (4.8-10.8)
[2018-09-13 19:08] LABS: ALKALINE PHOSPHATASE 180 U/L (45-117)
== END | disposition home or self-care (01) ==
LOC: LAB 17:55
PROVIDERS: Internal Medicine
DX: M54.5 Low back pain (principal); R22.2 Localized swelling, mass and lump, trunk; E10.9 Type 1 diabetes mellitus without complications; R63.4 Abnormal weight loss; E78.2 Mixed hyperlipidemia; W19.XXXD Unspecified fall, subsequent encounter; Z98.890 Other specified postprocedural states

== ENCOUNTER → 2018-09-14 | Outpatient (CLI) | payer OTHER | END | disposition home or self-care (01) | LOC: RESCLI | DX: E78.2 Mixed hyperlipidemia (principal); E10.9 Type 1 diabetes mellitus without complications; E55.9 Vitamin D deficiency, unspecified; K21.9 Gastro-esophageal reflux disease without esophagitis; M54.5 Low back pain; D64.9 Anemia, unspecified; K50.911 Crohn's disease, unspecified, with rectal bleeding; R00.0 Tachycardia, unspecified; R11.2 Nausea with vomiting, unspecified; F17.210 Nicotine dependence, cigarettes, uncomplicated; Z79.899 Other long term (current) drug therapy; Z88.8 Allergy status to other drugs, medicaments and biological substances ==

== ENCOUNTER → 2018-10-13 | Outpatient (CLI) | payer OTHER ==
--- NOTE | ~2018-10-13 | HM ---
[place], [place] HOLTER MONITOR REPORT [facility] [id number] UNIT #: [id number] ROOM: DOCTOR: RALEIGH ORZOCO MD BIRTHDATE: [birth year] DOS: HOLTER MONITOR REPORT REFERRING PHYSICIAN: Dr. Johanna Castañeda. FINDINGS: 1. Monitoring started at 10:25 a.m. and continued for 47 hours and 59 minutes. Average heart rate was 101 beats per minute. The minimum heart rate was 71 beats per minute. Maximum heart rate was 135 beats per minute. 2. Ventricular ectopic activity consisted of 2 beats of which one was in single PVCs, one was in the interpolated PVCs, which are documented in the Holter monitor report. 3. The patient's rhythm included 25 hours 90 seconds of tachycardia. Fastest episode lasted 1 minute 3 seconds and maximum heart rate was 135 beats per minute. 4. Supraventricular ectopic activity consisted of 30-38 beats of which 38 were single PACs. IMPRESSION: 1. Essentially, it is normal Holter except for PACs and PVCs. 2. If the patient is symptomatic, the patient will benefit from a low dose of beta evan. Clinical correlation as needed. RALEIGH OROZCO MD CM:HOLTER:HOLTER MONITOR REPORT [id number] RALEIGH OROZCO MD
== END | disposition home or self-care (01) ==
LOC: CARD 09:30
DX: R07.2 Precordial pain (principal)

== ENCOUNTER → 2018-10-22 | Outpatient (CLI) | payer OTHER | END | disposition home or self-care (01) | LOC: RESCLI 01:54 | DX: K21.9 Gastro-esophageal reflux disease without esophagitis (principal); R55 Syncope and collapse; E55.9 Vitamin D deficiency, unspecified; E78.2 Mixed hyperlipidemia; M54.5 Low back pain; E10.9 Type 1 diabetes mellitus without complications; R11.2 Nausea with vomiting, unspecified; I49.3 Ventricular premature depolarization; R00.0 Tachycardia, unspecified; Z79.899 Other long term (current) drug therapy; Z90.49 Acquired absence of other specified parts of digestive tract; Z88.8 Allergy status to other drugs, medicaments and biological substances ==

== ENCOUNTER → 2018-11-22 | Outpatient (CLI) | payer OTHER ==
[~2018-11-22] MED LIST changes: +CYCLOBENZAPRINE5 M3 PO
[2018-11-23 13:08] LABS: ACID FAST SPEC PROCESSING Concentration (.)
[2019-01-05 11:04] LABS: ACID FAST CULTURE Negative (.)
== END | disposition home or self-care (01) ==
LOC: LAB 15:12
PROVIDERS: Internal Medicine
DX: R04.2 Hemoptysis (principal); J18.9 Pneumonia, unspecified organism; R05 Cough; F17.200 Nicotine dependence, unspecified, uncomplicated

== ENCOUNTER → 2018-11-23 | Outpatient (CLI) | payer OTHER ==
[~2018-11-23] MED LIST changes: -CYCLOBENZAPRINE5 M3 PO
== END | disposition home or self-care (01) ==
LOC: RESCLI 02:33
DX: E78.2 Mixed hyperlipidemia (principal); R04.2 Hemoptysis; M54.5 Low back pain; R11.2 Nausea with vomiting, unspecified; E10.9 Type 1 diabetes mellitus without complications; I49.3 Ventricular premature depolarization; K92.1 Melena; K50.911 Crohn's disease, unspecified, with rectal bleeding; R00.0 Tachycardia, unspecified; F17.200 Nicotine dependence, unspecified, uncomplicated; Z79.899 Other long term (current) drug therapy; Z90.49 Acquired absence of other specified parts of digestive tract; Z88.8 Allergy status to other drugs, medicaments and biological substances

== ENCOUNTER 2018-12-07 22:57 | Emergency (ER) | payer OTHER ==
[~2018-12-07] VITALS: Ht 182.8 cm; Wt 92.1 kg
[2018-12-07 22:59] VITALS: BP 160/98
[2018-12-07 23:31] LABS: BASO % 0.4 % (0.0-1.0); EOS % 0.6 % (1.0-4.0); LYMPH # 1.5 10*3/uL (1.3-4.4); LYMPH % 21.3 % (27.0-41.0); MEAN CELL VOLUME 84.6 fl (80.0-94.0); MEAN CORPUSCULAR HGB 29.6 pg (27.0-31.0); MEAN PLATELET VOLUME 9.3 fl (9.6-12.3); MONO # 0.8 10*3/uL (0.1-1.0); MONO % 11.8 % (3.0-9.0); NEUT # 4.5 10*3/uL (2.3-7.9); NEUT % 65.5 % (47.0-73.0); RED BLOOD COUNT 4.86 10*6/uL (4.50-5.90); RED CELL DISTRI WIDTH 12.2 % (0-14.5); WHITE BLOOD COUNT 6.9 10*3/uL (4.8-10.8)
[2018-12-07 23:32] LABS: BILIRUBIN NEGATIVE (NEGATIVE); BLOOD NEGATIVE (NEGATIVE); CLARITY CLEAR (CLEAR); COLOR YELLOW (YELLOW); GLUCOSE 3+ (NEGATIVE); KETONE NEGATIVE (NEGATIVE); LEUKO ESTERASE NEGATIVE (NEGATIVE); NITRITE NEGATIVE (NEGATIVE); PH 5.5 (5.0-9.0); SPECIFIC GRAVITY <= 1.005 (1.005-1.030); UROBILINOGEN 0.2 E.U./dl (0.2-1.0)
[2018-12-07 23:37] LABS: HEMATOCRIT 41.1 % (42.0-52.0); HEMOGLOBIN 14.4 g/dl (14.0-18.0); PLATELET COUNT AUTOMATED 270 10*3/uL (130-400)
[2018-12-07 23:52] LABS: ALBUMIN 3.3 gm/dl (3.1-4.5); ALKALINE PHOSPHATASE 242 U/L (45-117); BUN 17 mg/dl (7-24); CHLORIDE 89 mmol/L (98-107); CREATININE 0.98 mg/dL (0.70-1.30); LIPASE 107 U/L (73-393); SGOT/AST 34 IU/L (3-35); SGPT/ALT 48 U/L (12-78); SODIUM 125 mmol/L (136-145); TOTAL PROTEIN 7.4 gm/dL (6.4-8.2)
[2018-12-07 23:54] LABS: POTASSIUM 4.9 mmol/L (3.5-5.1)
== END 2018-12-08 01:40 | disposition left against medical advice (07) ==
LOC: ED 22:57
PROVIDERS: Nurse Practitioner Family
DX: E10.65 Type 1 diabetes mellitus with hyperglycemia (principal); K21.9 Gastro-esophageal reflux disease without esophagitis; E78.5 Hyperlipidemia, unspecified; F17.200 Nicotine dependence, unspecified, uncomplicated; Z79.899 Other long term (current) drug therapy; Z79.4 Long term (current) use of insulin

== ENCOUNTER → 2019-02-01 | Outpatient (CLI) | payer SELFPAY ==
[~2019-02-01] MED LIST changes: +CYCLOBENZAPRINE5 M3 PO
== END | disposition home or self-care (01) ==
LOC: RESCLI 08:25
DX: I10 Essential (primary) hypertension (principal); I16.0 Hypertensive urgency; E10.42 Type 1 diabetes mellitus with diabetic polyneuropathy; K50.911 Crohn's disease, unspecified, with rectal bleeding; R11.2 Nausea with vomiting, unspecified; R53.82 Chronic fatigue, unspecified; E55.9 Vitamin D deficiency, unspecified; K21.9 Gastro-esophageal reflux disease without esophagitis; M54.5 Low back pain; E78.2 Mixed hyperlipidemia; I49.3 Ventricular premature depolarization; Z79.899 Other long term (current) drug therapy; Z90.49 Acquired absence of other specified parts of digestive tract; Z88.8 Allergy status to other drugs, medicaments and biological substances

== ENCOUNTER → 2019-03-08 | Outpatient (CLI) | payer SELFPAY ==
[2019-03-08 12:11] LABS: BILIRUBIN NEGATIVE (NEGATIVE); BLOOD NEGATIVE (NEGATIVE); CLARITY CLEAR (CLEAR); COLOR YELLOW (YELLOW); GLUCOSE 3+ (NEGATIVE); KETONE 1+ (NEGATIVE); LEUKO ESTERASE NEGATIVE (NEGATIVE); NITRITE NEGATIVE (NEGATIVE); PH 5.5 (5.0-9.0); UROBILINOGEN 0.2 E.U./dl (0.2-1.0)
[2019-03-08 13:20] LABS: BACTERIA 1+
== END | disposition home or self-care (01) ==
LOC: RESCLI 01:03
PROVIDERS: Internal Medicine
DX: E78.2 Mixed hyperlipidemia (principal); I10 Essential (primary) hypertension; K50.911 Crohn's disease, unspecified, with rectal bleeding; E10.42 Type 1 diabetes mellitus with diabetic polyneuropathy; E55.9 Vitamin D deficiency, unspecified; R11.2 Nausea with vomiting, unspecified; I49.3 Ventricular premature depolarization; K21.9 Gastro-esophageal reflux disease without esophagitis; M54.5 Low back pain; F33.1 Major depressive disorder, recurrent, moderate; Z79.899 Other long term (current) drug therapy; Z88.8 Allergy status to other drugs, medicaments and biological substances

== ENCOUNTER → 2019-04-13 | Outpatient (CLI) | payer SELFPAY ==
[2019-04-13 09:22] LABS: BASO % 0.4 % (0.0-1.0); EOS # 0.1 10*3/uL (0.0-0.4); EOS % 0.9 % (1.0-4.0); HEMOGLOBIN 13.8 g/dl (14.0-18.0); LYMPH # 1.2 10*3/uL (1.3-4.4); LYMPH % 13.8 % (27.0-41.0); MEAN CELL VOLUME 87.3 fl (80.0-94.0); MEAN CORPUSCULAR HGB 30.1 pg (27.0-31.0); MEAN CORPUSCULAR HGB CONC 34.5 g/dl (33.0-37.0); MEAN PLATELET VOLUME 9.3 fl (9.6-12.3); MONO # 0.8 10*3/uL (0.1-1.0); MONO % 9.6 % (3.0-9.0); NEUT # 6.3 10*3/uL (2.3-7.9); NEUT % 74.9 % (47.0-73.0); PLATELET COUNT AUTOMATED 281 10*3/uL (130-400); RED BLOOD COUNT 4.58 10*6/uL (4.50-5.90); RED CELL DISTRI WIDTH 12.6 % (0-14.5); WHITE BLOOD COUNT 8.5 10*3/uL (4.8-10.8)
[2019-04-13 09:35] LABS: BUN 14 mg/dl (7-24); CHLORIDE 98 mmol/L (98-107); CREATININE 0.78 mg/dL (0.70-1.30); SODIUM 131 mmol/L (136-145)
[2019-04-13 09:40] LABS: IRON 45 ug/dL (65-175); TOTAL IRON BINDING CAPACITY 336 ug/dl (250-450)
== END | disposition home or self-care (01) ==
LOC: RESCLI 00:07
PROVIDERS: Internal Medicine
DX: K21.9 Gastro-esophageal reflux disease without esophagitis (principal); K50.911 Crohn's disease, unspecified, with rectal bleeding; E10.42 Type 1 diabetes mellitus with diabetic polyneuropathy; I10 Essential (primary) hypertension; E55.9 Vitamin D deficiency, unspecified; R11.2 Nausea with vomiting, unspecified; I49.3 Ventricular premature depolarization; E78.2 Mixed hyperlipidemia; M54.5 Low back pain; F33.1 Major depressive disorder, recurrent, moderate; R25.2 Cramp and spasm; G47.9 Sleep disorder, unspecified; D50.9 Iron deficiency anemia, unspecified; Z79.899 Other long term (current) drug therapy; Z90.49 Acquired absence of other specified parts of digestive tract

== ENCOUNTER 2019-04-23 17:36 | Emergency (ER) | payer SELFPAY ==
[~2019-04-23] VITALS: Ht 182.8 cm; Wt 99.8 kg
[~2019-04-23 17:36] MED LIST changes: -CYCLOBENZAPRINE5 M3 PO
[2019-04-23 17:37] VITALS: BP 108/76
[2019-04-23] MEDS ORDERED: CYCLOBENZAPRINE5 M3 PO (20:48)
== END 2019-04-23 20:25 | disposition home or self-care (01) ==
LOC: ED 17:36
DX: M54.6 Pain in thoracic spine (principal); M54.5 Low back pain; G89.29 Other chronic pain; F17.200 Nicotine dependence, unspecified, uncomplicated; Z79.899 Other long term (current) drug therapy; Z79.4 Long term (current) use of insulin; Z90.49 Acquired absence of other specified parts of digestive tract

== ENCOUNTER 2019-04-26 22:16 | Emergency (ER) | payer SELFPAY ==
[~2019-04-26] VITALS: Ht 182.8 cm; Wt 99.8 kg
[~2019-04-26 22:16] MED LIST changes: +CYCLOBENZAPRINE5 M3 PO
[2019-04-26 22:17] VITALS: BP 136/84
[2019-04-26 23:43] LABS: BASO % 0.4 % (0.0-1.0); EOS # 0.1 10*3/uL (0.0-0.4); EOS % 1.2 % (1.0-4.0); HEMATOCRIT 41.3 % (42.0-52.0); HEMOGLOBIN 14.5 g/dl (14.0-18.0); LYMPH # 2.3 10*3/uL (1.3-4.4); LYMPH % 28.1 % (27.0-41.0); MEAN CORPUSCULAR HGB 30.2 pg (27.0-31.0); MEAN CORPUSCULAR HGB CONC 35.1 g/dl (33.0-37.0); MEAN PLATELET VOLUME 9.2 fl (9.6-12.3); MONO % 12.4 % (3.0-9.0); NEUT # 4.7 10*3/uL (2.3-7.9); NEUT % 57.7 % (47.0-73.0); PLATELET COUNT AUTOMATED 261 10*3/uL (130-400); RED CELL DISTRI WIDTH 12.2 % (0-14.5); WHITE BLOOD COUNT 8.1 10*3/uL (4.8-10.8)
[2019-04-26 23:59] LABS: ALBUMIN 3.5 gm/dl (3.1-4.5); ALKALINE PHOSPHATASE 164 U/L (45-117); BUN 18 mg/dl (7-24); CHLORIDE 101 mmol/L (98-107); CREATININE 0.81 mg/dL (0.70-1.30); POTASSIUM 3.6 mmol/L (3.5-5.1); SGOT/AST 30 IU/L (3-35); SGPT/ALT 36 U/L (12-78); SODIUM 134 mmol/L (136-145); TOTAL PROTEIN 7.3 gm/dL (6.4-8.2)
== END 2019-04-27 00:25 | disposition home or self-care (01) ==
LOC: ED 22:16
PROVIDERS: Emergency Medicine Emergency Medical Services
DX: M51.36 Other intervertebral disc degeneration, lumbar region (principal); M48.061 Spinal stenosis, lumbar region without neurogenic claudication; R11.2 Nausea with vomiting, unspecified; K21.9 Gastro-esophageal reflux disease without esophagitis; E78.5 Hyperlipidemia, unspecified; E10.9 Type 1 diabetes mellitus without complications; F17.200 Nicotine dependence, unspecified, uncomplicated; Z79.899 Other long term (current) drug therapy; Z79.4 Long term (current) use of insulin; Z90.49 Acquired absence of other specified parts of digestive tract

== ENCOUNTER → 2019-09-05 | Outpatient (CLI) | payer SELFPAY | END | disposition home or self-care (01) | LOC: CT 10:00 | DX: M79.9 Soft tissue disorder, unspecified (principal) ==

== ENCOUNTER 2019-09-20 14:24 | Inpatient (IN) | payer MEDICAID ==
[~2019-09-20] VITALS: Ht 182.9 cm; Wt 94.8 kg
[2019-09-20 14:25] VITALS: BP 140/72
[2019-09-20 15:04] LABS: BILIRUBIN NEGATIVE (NEGATIVE); BLOOD NEGATIVE (NEGATIVE); CLARITY CLEAR (CLEAR); COLOR YELLOW (YELLOW); GLUCOSE 3+ (NEGATIVE); KETONE 2+ (NEGATIVE); LEUKO ESTERASE NEGATIVE (NEGATIVE); NITRITE NEGATIVE (NEGATIVE); PH 5.5 (5.0-9.0); UROBILINOGEN 0.2 E.U./dl (0.2-1.0)
[2019-09-20 15:10] LABS: BACTERIA TRACE; EPITHELIAL CELLS 0-2; WBC 0-2 wbc/hpf (0-5)
[2019-09-20 15:12] LABS: URINE AMPHETAMINES < 1000 (1000ng/ml); URINE BARBITURATES < 200 (200ng/ml); URINE BENZODIAZEPINES < 200 (200ng/ml); URINE CANNABINOIDS (THC) < 50 (50ng/ml); URINE COCAINE < 300 (300ng/ml); URINE METHADONE < 300 (300ng/ml); URINE OPIATES < 300 (300ng/ml)
[2019-09-20 15:15] LABS: URINE PHENCYCLIDINE < 25 (25ng/ml)
[2019-09-20 15:30] LABS: VENOUS PH 7.222 (7.32-7.43)
[2019-09-20 15:32] LABS: BASO % 0.3 % (0.0-1.0); HEMATOCRIT 45.1 % (42.0-52.0); HEMOGLOBIN 14.8 g/dl (14.0-18.0); LYMPH # 0.9 10*3/uL (1.3-4.4); LYMPH % 9.1 % (27.0-41.0); MEAN CELL VOLUME 88.8 fl (80.0-94.0); MEAN CORPUSCULAR HGB 29.1 pg (27.0-31.0); MEAN CORPUSCULAR HGB CONC 32.8 g/dl (33.0-37.0); MEAN PLATELET VOLUME 9.8 fl (9.6-12.3); MONO # 0.6 10*3/uL (0.1-1.0); MONO % 6.3 % (3.0-9.0); NEUT # 8.1 10*3/uL (2.3-7.9); NEUT % 83.9 % (47.0-73.0); PLATELET COUNT AUTOMATED 353 10*3/uL (130-400); RED BLOOD COUNT 5.08 10*6/uL (4.50-5.90); RED CELL DISTRI WIDTH 11.9 % (0-14.5); WHITE BLOOD COUNT 9.7 10*3/uL (4.8-10.8)
[2019-09-20 15:52] LABS: ACT PARTIAL THROMBO TIME 25.4 SECONDS (20.0-32.1); INTERNATIONAL NORM RATIO 0.9 (2.0-3.5)
[2019-09-20 16:15] LABS: ALBUMIN 3.6 gm/dl (3.1-4.5); ALKALINE PHOSPHATASE 230 U/L (45-117); BUN 22 mg/dl (7-24); CHLORIDE 93 mmol/L (98-107); CREATININE 1.12 mg/dL (0.70-1.30); LIPASE 103 U/L (73-393); POTASSIUM 5.9 mmol/L (3.5-5.1); SGOT/AST 49 IU/L (3-35); SGPT/ALT 55 U/L (12-78); SODIUM 126 mmol/L (136-145); TOTAL PROTEIN 7.8 gm/dL (6.4-8.2)
[2019-09-20 16:36] LABS: TROPONIN I < 0.015 ng/ml (<0.045)
--- NOTE | 2019-09-20 16:36 | NUR ---
CRITICAL GLUCOSE 698 AND LACTIC ACID 2.6 RELAYED TO AUGUSTIN COFFEY AT THIS TIME
[2019-09-20 16:48] VITALS: BP 121/68
[2019-09-20 17:37] VITALS: BP 115/69
--- NOTE | 2019-09-20 17:50 | NUR ---
DELAY IN TAKING PT TO ICCU, WAITING FOR NIGHT TURN NURSE TO COME IN EARLY FOR PT.
--- NOTE | 2019-09-20 17:52 | NUR ---
PATIENT'S SIGO TO DESK STATING THAT THE PATIENT IS HAVING CHEST PAIN. AUGUSTIN TAPIA AND DR SOLORZANO NOTIFIED AT THIS TIME. VO EKG TAKEN FROM AUGUSTIN
[2019-09-20 18:20] VITALS: BP 117/79
--- NOTE | 2019-09-20 18:20 | NUR ---
A 39, admitted to ICCU, under the services of SOPHIE Taylor DO with a diagnosis of DKA, low back pain. Chief complaint is back pain, nausea & vomiting, elevated blood sugar, dry mouth, and fruity breath. Patient arrived via stretcher from ER. Monitor applied. Initial assessment completed. Vital signs taken and recorded. SOPHIE TAYLOR DO notified of admission to the unit. Orders received. See assessment for past medical history, medications and allergies. Patient and/or family oriented to unit. [facility] ICCU visitation policy reviewed. Clothing/patient valuable form completed. KACY IGLESIAS
[2019-09-20] MEDS ORDERED: LISINOPRIL2.5 MG PO (19:00)
--- NOTE | 2019-09-20 19:36 | NUR ---
BEDSIDE GLUCOSE IN ER AT 1809 WAS 349. BEDSIDE GLUCOSE AT 193 WAS 188. INSULIN HAS BEEN TITRATED DOWN TO 2 UNITS/HR.
--- NOTE | 2019-09-20 19:50 | NUR ---
NORCO WAS GIVEN AT 1920 FOR C/O LOW BACK PAIN AND PAIN DOWN LT LEG. PT STATES STARTING TO FEEL SOME BETTER.
[2019-09-20 20:00] VITALS: BP 117/67
--- NOTE | 2019-09-20 20:36 | NUR ---
DR CONTRERAS HERE. NOTIFIED OF LACTIC ACID 3.6. LAST 3 BEDSIDE GLUCOSES AND THAT INSULIN GTT IS AT 2 UNITS HR, ALSO THAT PT RECEIVED A NORCO AND STATES FEELS ITCHY BUT IS WITHOUT HIVES OR ANY OTHER ALLERGIC REACTION SYMPTOMS. ORDERS RECEIVED.
--- NOTE | 2019-09-20 20:46 | NUR ---
IVF CHANGED TO D5.45NS ORDERED. LABS BEING DRAWN NOW. PT AWARE THAT DIET MAY BE ADVANCED BASED UPON RESULTS OF GAP.
[2019-09-20 21:11] LABS: BUN 18 mg/dl (7-24); CHLORIDE 108 mmol/L (98-107); CREATININE 0.87 mg/dL (0.70-1.30); SODIUM 135 mmol/L (136-145)
[2019-09-20 21:12] LABS: POTASSIUM 4.6 mmol/L (3.5-5.1)
--- NOTE | 2019-09-20 21:22 | NUR ---
DR CONTRERAS HERE. NOTIFIED OF LABS AND THAT PT ITCHING. NO HIVES. DR CONTRERAS IN TO EXAMINE HIM RE: ITCHING.
--- NOTE | 2019-09-20 21:57 | NUR ---
PT EATING AND DRINKING WITH NO PROBLEMS. BENADRYL AT 2130 FOR ITCHING ORDERED.
--- NOTE | 2019-09-20 22:18 | NUR ---
PT STATES BENADRYL WAS EFFECTIVE FOR ITCHING.
[2019-09-20 23:57] LABS: BUN 13 mg/dl (7-24); CHLORIDE 106 mmol/L (98-107); CREATININE 0.92 mg/dL (0.70-1.30); POTASSIUM 4.2 mmol/L (3.5-5.1); SODIUM 136 mmol/L (136-145)
[2019-09-21] VITALS: BP 119/66
--- NOTE | 2019-09-21 00:09 | NUR ---
DR CONTRERAS NOTIFIED OF LACTIC ACID 3.4, BMP RESULTS WITH GAP OF 10. INSULIN GTT AND IVF OFF SINCE 2219.
--- NOTE | 2019-09-21 02:35 | NUR ---
PT SLEEPING. HR 70'S - 80'S.
[2019-09-21 04:00] VITALS: BP 122/60
[2019-09-21 06:26] LABS: BUN 14 mg/dl (7-24); CHLORIDE 104 mmol/L (98-107); PHOSPHOROUS 2.8 mg/dL (2.5-4.9); POTASSIUM 4.8 mmol/L (3.5-5.1); SODIUM 133 mmol/L (136-145)
--- NOTE | 2019-09-21 06:38 | NUR ---
PT SLEEPING. SKIN W/D. NO COMPLAINTS AT THIS TIME.
[2019-09-21 06:43] LABS: BASO % 0.4 % (0.0-1.0); EOS # 0.1 10*3/uL (0.0-0.4); EOS % 1.9 % (1.0-4.0); HEMOGLOBIN 14.2 g/dl (14.0-18.0); LYMPH # 1.6 10*3/uL (1.3-4.4); MEAN CELL VOLUME 87.8 fl (80.0-94.0); MEAN PLATELET VOLUME 9.3 fl (9.6-12.3); MONO # 0.8 10*3/uL (0.1-1.0); MONO % 10.2 % (3.0-9.0); NEUT # 4.8 10*3/uL (2.3-7.9); NEUT % 65.2 % (47.0-73.0); PLATELET COUNT AUTOMATED 290 10*3/uL (130-400); WHITE BLOOD COUNT 7.3 10*3/uL (4.8-10.8)
[2019-09-21 07:49] VITALS: BP 129/72
--- NOTE | 2019-09-21 08:02 | NUR ---
SPOKE WITH DR. SOLORZANO ABOUT PATIENT CARE. HOME MEDS CONTINUED.
--- NOTE | 2019-09-21 08:32 | NUR ---
PATIENT RESTING COMFORTABLY IN BED. PATIENT STATES HE HAS HAD TROUBLE SLEEPING THROUGHOUT THE NIGHT. DENIES ANY PAIN, DISCOMFORT, OR SHORTNESS OF BREATHE. PATIENT IS ABLE TO REPOSITION AND AMBULATE W/O ASSIST. NO FURTHER REQUEST AT THIS TIME. CALL LIGHT WITHIN REACH.
--- NOTE | 2019-09-21 09:00 | NUR ---
Batch Or Continuous Still Operator in to talk to patient. Patient states lives at home with alone. There are few steps in the home. Physician: [facility] [place] [facility] services: none Patient's level of ADLs: INDEPENDENT Patient has working utilities: all working DME: glucometer Follow-up physician's appointment after d/c: will be made by hospitalist nurse director upon discharge Does patient want to access PORTAL?: no Discharge plan patient lives at home, is independent in adls and ambulation, he will return home when medically stable and denies any home needs. GABRIEL DE LA PAZ
--- NOTE | 2019-09-21 09:05 | NUR ---
DR. VO IN TO SEE AND DISCUSS PLAN OF CARE. PATIENT WANT TO LEAVE AGAINST MEDICAL ADVICE. DR. VO EXPLAINS THE CONSEQUENCES OF LEAVING. AMA FORM COMPLETED. HEPLOCK REMOVED FROM RIGHT ARM.
--- NOTE | 2019-09-21 09:20 | NUR ---
PATIENT AMBULATED OFF THE FLOOR.
== END 2019-09-21 09:20 | disposition left against medical advice (07) | DRG 420 ==
LOC: ED 14:24 → EDHOLD 17:08 → ICCU 17:43
PROVIDERS: Internal Medicine; Physician Assistant; ADMIT Family Medicine
DX: E10.10 Type 1 diabetes mellitus with ketoacidosis without coma (principal); E87.1 Hypo-osmolality and hyponatremia; R00.0 Tachycardia, unspecified; E66.3 Overweight; M54.5 Low back pain; E87.5 Hyperkalemia; R74.0 Nonspecific elevation of levels of transaminase and lactic acid dehydrogenase [LDH]; F17.210 Nicotine dependence, cigarettes, uncomplicated; E55.9 Vitamin D deficiency, unspecified; K21.9 Gastro-esophageal reflux disease without esophagitis; E78.5 Hyperlipidemia, unspecified; G89.29 Other chronic pain; K50.919 Crohn's disease, unspecified, with unspecified complications; Z53.29 Procedure and treatment not carried out because of patient's decision for other reasons; M51.36 Other intervertebral disc degeneration, lumbar region; Z71.6 Tobacco abuse counseling; Z82.49 Family history of ischemic heart disease and other diseases of the circulatory system; Z90.49 Acquired absence of other specified parts of digestive tract; Z79.899 Other long term (current) drug therapy; Z68.28 Body mass index [BMI] 28.0-28.9, adult

== ENCOUNTER 2019-10-08 22:59 | Emergency (ER) | payer MEDICAID ==
[~2019-10-08] VITALS: Ht 182.8 cm; Wt 90.7 kg
[~2019-10-08 22:59] MED LIST changes: +LISINOPRIL2.5 MG PO
[2019-10-08 23:01] VITALS: BP 156/82
[2019-10-09] MEDS ORDERED: ORPHENADRINE C100 M1 PO (02:04)
== END 2019-10-09 02:28 | disposition home or self-care (01) ==
LOC: ED 22:59
DX: M54.5 Low back pain (principal); G89.29 Other chronic pain; J45.909 Unspecified asthma, uncomplicated; I10 Essential (primary) hypertension; E11.9 Type 2 diabetes mellitus without complications; K21.9 Gastro-esophageal reflux disease without esophagitis; F17.200 Nicotine dependence, unspecified, uncomplicated; Z79.899 Other long term (current) drug therapy; Z79.4 Long term (current) use of insulin; Z90.49 Acquired absence of other specified parts of digestive tract

== ENCOUNTER 2019-10-15 16:47 | Emergency (ER) | payer MEDICAID ==
[~2019-10-15] VITALS: Ht 182.8 cm; Wt 90.7 kg
[~2019-10-15 16:47] MED LIST changes: +ORPHENADRINE C100 M1 PO
[2019-10-15 16:48] VITALS: BP 121/67
== END 2019-10-15 17:46 | disposition left against medical advice (07) ==
LOC: ED 16:47
DX: M54.5 Low back pain (principal); F17.200 Nicotine dependence, unspecified, uncomplicated; Z53.21 Procedure and treatment not carried out due to patient leaving prior to being seen by health care provider; Z79.4 Long term (current) use of insulin

== ENCOUNTER 2019-12-04 23:07 | Emergency (ER) | payer MEDICAID ==
[~2019-12-04] VITALS: Ht 182.8 cm; Wt 96.2 kg
[2019-12-04 23:19] VITALS: BP 138/69
== END 2019-12-05 04:08 | disposition home or self-care (01) ==
LOC: ED 23:07
DX: G89.18 Other acute postprocedural pain (principal); M54.5 Low back pain; G89.29 Other chronic pain; K21.9 Gastro-esophageal reflux disease without esophagitis; E78.5 Hyperlipidemia, unspecified; J45.909 Unspecified asthma, uncomplicated; E10.9 Type 1 diabetes mellitus without complications; F17.210 Nicotine dependence, cigarettes, uncomplicated; Z88.6 Allergy status to analgesic agent; Z88.8 Allergy status to other drugs, medicaments and biological substances; Z88.1 Allergy status to other antibiotic agents; Z79.4 Long term (current) use of insulin; Z79.899 Other long term (current) drug therapy; Z90.49 Acquired absence of other specified parts of digestive tract

== ENCOUNTER → 2020-06-19 | Outpatient (CLI) | payer OTHER ==
[2020-06-19 11:44] LABS: HEMATOCRIT 44.4 % (42.0-52.0); MEAN CORPUSCULAR HGB 28.9 pg (27.0-31.0); MEAN CORPUSCULAR HGB CONC 33.6 g/dl (33.0-37.0); RED BLOOD COUNT 5.16 10*6/uL (4.50-5.90); RED CELL DISTRI WIDTH 12.4 % (0-14.5); WHITE BLOOD COUNT 7.4 10*3/uL (4.8-10.8)
[2020-06-19 12:17] LABS: ALBUMIN 3.6 gm/dl (3.1-4.5); BUN 16 mg/dl (7-24); CHLORIDE 104 mmol/L (98-107); CHOLESTEROL 207 mg/dL (<200); CPK 128 U/L (39-308); HDL CHOLESTEROL 51 mg/dl (40-60); LDL CHOLESTEROL 115 mg/dL (9-159); POTASSIUM 4.5 mmol/L (3.5-5.1); SGOT/AST 20 IU/L (3-35); SGPT/ALT 40 U/L (12-78); SODIUM 138 mmol/L (136-145); TOTAL PROTEIN 8.2 gm/dL (6.4-8.2); TRIGLYCERIDES 203 mg/dl (<150); VLDL CHOLESTEROL 41 mg/dL (6-40)
[2020-06-19 12:22] LABS: ALKALINE PHOSPHATASE 172 U/L (45-117); THYROID STIM HORMONE (HS) 0.937 uIU/ml (0.358-4.75)
[2020-06-19 12:23] LABS: VITAMIN D, 25-HYDROXY 32.5 ng/mL (30-100)
[2020-06-20 08:08] LABS: HEP B CORE AB, IGM Negative (Negative); HEPATITIS B SURFACE AG Negative (Negative); HEPATITIS C VIRUS ANTIBODY <0.1 s/co (0.0-0.9)
[2020-06-20 10:07] LABS: RHEUMATOID ARTHRITIS FACTOR 11.2 IU/mL (0.0-13.9)
== END | disposition home or self-care (01) ==
LOC: LAB 11:07
PROVIDERS: ATTEND Family Medicine
DX: E55.9 Vitamin D deficiency, unspecified (principal); E78.00 Pure hypercholesterolemia, unspecified; E11.9 Type 2 diabetes mellitus without complications; M79.10 Myalgia, unspecified site; M25.50 Pain in unspecified joint; R53.83 Other fatigue; M54.9 Dorsalgia, unspecified; I10 Essential (primary) hypertension

== ENCOUNTER 2020-06-30 22:33 | Emergency (ER) | payer OTHER ==
[2020-06-30 22:37] VITALS: BP 152/100
[2020-07-01 02:13] LABS: BILIRUBIN NEGATIVE; BLOOD NEGATIVE (NEGATIVE); CLARITY CLEAR (CLEAR); COLOR YELLOW (YELLOW); GLUCOSE 3+; KETONE NEGATIVE; LEUKO ESTERASE NEGATIVE (NEGATIVE); NITRITE NEGATIVE (NEGATIVE); PH 5.5 (4.5-8.0); UROBILINOGEN 0.2 E.U./dl (0.0-1.0)
[2020-07-01] MEDS ORDERED: Percocet 325 MG1 TAB PO (04:26)
== END 2020-07-01 04:37 | disposition home or self-care (01) ==
LOC: ED 22:33
PROVIDERS: Emergency Medicine Emergency Medical Services
DX: G89.18 Other acute postprocedural pain (principal); K21.9 Gastro-esophageal reflux disease without esophagitis; E78.5 Hyperlipidemia, unspecified; Z79.899 Other long term (current) drug therapy; Z79.4 Long term (current) use of insulin

== ENCOUNTER → 2020-08-29 | Outpatient (CLI) | payer OTHER ==
[~2020-08-29] MED LIST changes: +Percocet 325 MG1 TAB PO
== END | disposition home or self-care (01) ==
LOC: MRI 09:00
PROVIDERS: ATTEND Psychiatry & Neurology Neurology
DX: G81.94 Hemiplegia, unspecified affecting left nondominant side (principal)

== ENCOUNTER → 2020-09-20 | Outpatient (CLI) | payer OTHER | END | disposition home or self-care (01) | LOC: MRI 10:00 | PROVIDERS: ATTEND Psychiatry & Neurology Neurology | DX: G82.50 Quadriplegia, unspecified (principal) ==

== ENCOUNTER 2021-08-05 05:10 | Emergency (ER) | payer BC ==
[~2021-08-05] VITALS: Ht 182.8 cm; Wt 99.8 kg
[2021-08-05 06:38] LABS: BASO % 0.3 % (0.0-1.0); EOS # 0.1 10*3/uL (0.0-0.4); LYMPH # 1.3 10*3/uL (1.3-4.4); LYMPH % 15.9 % (27.0-41.0); MEAN CELL VOLUME 86.3 fl (80.0-94.0); MEAN CORPUSCULAR HGB 29.1 pg (27.0-31.0); MEAN CORPUSCULAR HGB CONC 33.7 g/dl (33.0-37.0); MEAN PLATELET VOLUME 9.2 fl (9.6-12.3); MONO # 0.8 10*3/uL (0.1-1.0); NEUT # 5.8 10*3/uL (2.3-7.9); NEUT % 72.7 % (47.0-73.0); PLATELET COUNT AUTOMATED 244 10*3/uL (130-400); RED BLOOD COUNT 4.98 10*6/uL (4.50-5.90); RED CELL DISTRI WIDTH 11.8 % (0-14.5)
[2021-08-05 06:54] LABS: ALBUMIN 3.1 gm/dl (3.1-4.5); ALKALINE PHOSPHATASE 275 U/L (45-117); BUN 19 mg/dl (7-24); CHLORIDE 95 mmol/L (98-107); CREATININE 0.87 mg/dL (0.70-1.30); POTASSIUM 5.1 mmol/L (3.5-5.1); SGOT/AST 28 IU/L (3-35); SGPT/ALT 31 U/L (12-78); SODIUM 128 mmol/L (136-145); TOTAL PROTEIN 7.2 gm/dL (6.4-8.2)
[2021-08-05 07:24] VITALS: BP 112/64
[2021-08-05 07:38] LABS: BILIRUBIN Negative (Negative); BLOOD Negative (Negative); CLARITY Clear (Clear); COLOR Yellow (Yellow); GLUCOSE 3+ (Negative); KETONE 1+ (Negative); LEUKO ESTERASE Negative (Negative); NITRITE Negative (Negative); PH 5.5 (4.5-8.0); SPECIFIC GRAVITY >= 1.030 (1.001-1.030); UROBILINOGEN 0.2 E.U./dl (0.0-1.0)
[2021-08-05 07:51] LABS: EPITHELIAL CELLS 0-2
[2021-08-05] MEDS ORDERED: PHENERGAN25 M3 PO (09:45)
== END 2021-08-05 09:49 | disposition home or self-care (01) ==
LOC: ED 05:10
PROVIDERS: Emergency Medicine
DX: E10.65 Type 1 diabetes mellitus with hyperglycemia (principal); R11.2 Nausea with vomiting, unspecified; K21.9 Gastro-esophageal reflux disease without esophagitis; E78.5 Hyperlipidemia, unspecified; F17.200 Nicotine dependence, unspecified, uncomplicated; Z88.1 Allergy status to other antibiotic agents; Z88.6 Allergy status to analgesic agent; Z79.899 Other long term (current) drug therapy

== ENCOUNTER 2021-12-16 18:55 | Emergency (ER) | payer OTHER ==
[~2021-12-16 18:55] MED LIST changes: +PHENERGAN25 M3 PO
[2021-12-16 19:00] VITALS: BP 142/78
== END 2021-12-16 20:00 | disposition left against medical advice (07) ==
LOC: ED 18:55
DX: M54.9 Dorsalgia, unspecified (principal); Z53.21 Procedure and treatment not carried out due to patient leaving prior to being seen by health care provider

== ENCOUNTER 2022-04-09 16:02 | Emergency (ER) | payer OTHER ==
[~2022-04-09] VITALS: Ht 182.8 cm; Wt 102.1 kg
[2022-04-09 16:12] VITALS: BP 140/78
[2022-04-09 16:35] LABS: BASO % 0.2 % (0.0-1.0); EOS % 0.2 % (1.0-4.0); HEMATOCRIT 49.1 % (42.0-52.0); LYMPH # 1.4 10*3/uL (1.3-4.4); LYMPH % 11.3 % (27.0-41.0); MEAN CELL VOLUME 85.7 fl (80.0-94.0); MEAN CORPUSCULAR HGB 29.5 pg (27.0-31.0); MEAN CORPUSCULAR HGB CONC 34.4 g/dl (33.0-37.0); MEAN PLATELET VOLUME 8.9 fl (9.6-12.3); MONO # 0.9 10*3/uL (0.1-1.0); MONO % 7.2 % (3.0-9.0); NEUT # 10.1 10*3/uL (2.3-7.9); NEUT % 80.6 % (47.0-73.0); PLATELET COUNT AUTOMATED 383 10*3/uL (130-400); RED BLOOD COUNT 5.73 10*6/uL (4.50-5.90); RED CELL DISTRI WIDTH 12.2 % (0-14.5); WHITE BLOOD COUNT 12.6 10*3/uL (4.8-10.8)
[2022-04-09 16:55] LABS: BUN 23 mg/dl (7-24); CHLORIDE 99 mmol/L (98-107); CREATININE 1.31 mg/dL (0.70-1.30); POTASSIUM 4.4 mmol/L (3.5-5.1); SGOT/AST 50 IU/L (3-35); SGPT/ALT 61 U/L (12-78); SODIUM 132 mmol/L (136-145)
[2022-04-09 16:57] LABS: ALKALINE PHOSPHATASE 180 U/L (45-117)
[2022-04-09 19:52] LABS: ALKALINE PHOSPHATASE 149 U/L (45-117); BUN 21 mg/dl (7-24); CHLORIDE 104 mmol/L (98-107); CREATININE 0.84 mg/dL (0.70-1.30); POTASSIUM 4.1 mmol/L (3.5-5.1); SGOT/AST 43 IU/L (3-35); SGPT/ALT 53 U/L (12-78); SODIUM 134 mmol/L (136-145); TOTAL PROTEIN 7.7 gm/dL (6.4-8.2)
== END 2022-04-09 21:11 | disposition home or self-care (01) ==
LOC: ED 16:02
PROVIDERS: Physician Assistant
DX: E86.0 Dehydration (principal)

== ENCOUNTER 2022-04-10 20:16 | Emergency (ER) | payer OTHER ==
[~2022-04-10] VITALS: Ht 182.8 cm; Wt 102.1 kg
[2022-04-10 20:27] VITALS: BP 133/82
[2022-04-10 21:27] LABS: BASO % 0.3 % (0.0-1.0); EOS % 0.3 % (1.0-4.0); HEMATOCRIT 44.2 % (42.0-52.0); LYMPH # 1.6 10*3/uL (1.3-4.4); LYMPH % 13.6 % (27.0-41.0); MEAN CELL VOLUME 85.2 fl (80.0-94.0); MEAN CORPUSCULAR HGB 28.9 pg (27.0-31.0); MEAN CORPUSCULAR HGB CONC 33.9 g/dl (33.0-37.0); MEAN PLATELET VOLUME 8.5 fl (9.6-12.3); MONO # 0.8 10*3/uL (0.1-1.0); MONO % 6.8 % (3.0-9.0); NEUT # 9.3 10*3/uL (2.3-7.9); NEUT % 78.6 % (47.0-73.0); PLATELET COUNT AUTOMATED 310 10*3/uL (130-400); RED BLOOD COUNT 5.19 10*6/uL (4.50-5.90); RED CELL DISTRI WIDTH 12.1 % (0-14.5); WHITE BLOOD COUNT 11.9 10*3/uL (4.8-10.8)
[2022-04-10 21:41] LABS: ALKALINE PHOSPHATASE 155 U/L (45-117); BUN 19 mg/dl (7-24); CHLORIDE 100 mmol/L (98-107); CREATININE 1.08 mg/dL (0.70-1.30); SGOT/AST 34 IU/L (3-35); SGPT/ALT 45 U/L (12-78); SODIUM 134 mmol/L (136-145); TOTAL PROTEIN 7.9 gm/dL (6.4-8.2)
== END 2022-04-10 23:02 | disposition left against medical advice (07) ==
LOC: ED 20:16
PROVIDERS: Internal Medicine
DX: R11.2 Nausea with vomiting, unspecified (principal); M54.50 Low back pain, unspecified; Z88.1 Allergy status to other antibiotic agents; Z88.6 Allergy status to analgesic agent; Z79.899 Other long term (current) drug therapy; Z90.49 Acquired absence of other specified parts of digestive tract; Z98.890 Other specified postprocedural states; Z87.891 Personal history of nicotine dependence

== ENCOUNTER 2022-05-21 23:52 | Emergency (ER) | payer OTHER ==
[~2022-05-21] VITALS: Ht 182.8 cm; Wt 99.8 kg
[2022-05-22] MEDS ORDERED: HUMULIN R500 UNIT/1 SC (00:26)
[2022-05-22] MEDS ORDERED: HUMALOG KW200 UNIT/1 SC (00:26)
[2022-05-22] MEDS ORDERED: CELECOXIB200 M1 PO (00:27)
[2022-05-22 00:47] LABS: BASO % 0.5 % (0.0-1.0); EOS # 0.1 10*3/uL (0.0-0.4); EOS % 1.3 % (1.0-4.0); HEMATOCRIT 39.2 % (42.0-52.0); LYMPH # 2.1 10*3/uL (1.3-4.4); LYMPH % 27.1 % (27.0-41.0); MEAN CELL VOLUME 84.8 fl (80.0-94.0); MEAN CORPUSCULAR HGB CONC 34.2 g/dl (33.0-37.0); MEAN PLATELET VOLUME 8.9 fl (9.6-12.3); MONO # 0.8 10*3/uL (0.1-1.0); MONO % 10.2 % (3.0-9.0); NEUT # 4.7 10*3/uL (2.3-7.9); NEUT % 60.6 % (47.0-73.0); PLATELET COUNT AUTOMATED 276 10*3/uL (130-400); RED BLOOD COUNT 4.62 10*6/uL (4.50-5.90); RED CELL DISTRI WIDTH 12.5 % (0-14.5); WHITE BLOOD COUNT 7.7 10*3/uL (4.8-10.8)
[2022-05-22 01:05] LABS: ALKALINE PHOSPHATASE 116 U/L (45-117); BUN 15 mg/dl (7-24); CHLORIDE 108 mmol/L (98-107); POTASSIUM 3.5 mmol/L (3.5-5.1); SGOT/AST 27 IU/L (3-35); SGPT/ALT 29 U/L (12-78); SODIUM 142 mmol/L (136-145); TOTAL PROTEIN 7.1 gm/dL (6.4-8.2)
[2022-05-22 01:52] VITALS: BP 125/68
== END 2022-05-22 01:54 | disposition left against medical advice (07) ==
LOC: ED 23:52
PROVIDERS: Emergency Medicine
DX: E10.649 Type 1 diabetes mellitus with hypoglycemia without coma (principal); K21.9 Gastro-esophageal reflux disease without esophagitis; E78.5 Hyperlipidemia, unspecified; F17.200 Nicotine dependence, unspecified, uncomplicated; Z98.890 Other specified postprocedural states; Z90.49 Acquired absence of other specified parts of digestive tract; Z79.899 Other long term (current) drug therapy; Z88.1 Allergy status to other antibiotic agents; Z88.6 Allergy status to analgesic agent

== ENCOUNTER 2022-06-26 15:21 | Emergency (ER) | payer OTHER ==
[~2022-06-26] VITALS: Ht 182.8 cm; Wt 99.8 kg
[~2022-06-26 15:21] MED LIST changes: +CELECOXIB200 M1 PO; +HUMALOG KW200 UNIT/1 SC; +HUMULIN R500 UNIT/1 SC
[2022-06-26 16:07] LABS: BASO % 0.2 % (0.0-1.0); EOS % 0.3 % (1.0-4.0); HEMATOCRIT 47.7 % (42.0-52.0); LYMPH % 8.1 % (27.0-41.0); MEAN CELL VOLUME 85.6 fl (80.0-94.0); MEAN CORPUSCULAR HGB 30.2 pg (27.0-31.0); MEAN CORPUSCULAR HGB CONC 35.2 g/dl (33.0-37.0); MEAN PLATELET VOLUME 8.9 fl (9.6-12.3); MONO # 0.9 10*3/uL (0.1-1.0); MONO % 7.5 % (3.0-9.0); NEUT # 10.1 10*3/uL (2.3-7.9); NEUT % 83.5 % (47.0-73.0); PLATELET COUNT AUTOMATED 350 10*3/uL (130-400); RED BLOOD COUNT 5.57 10*6/uL (4.50-5.90); RED CELL DISTRI WIDTH 11.8 % (0-14.5); WHITE BLOOD COUNT 12.1 10*3/uL (4.8-10.8)
[2022-06-26 16:24] LABS: CREATININE 1.59 mg/dL (0.70-1.30); POTASSIUM 4.9 mmol/L (3.5-5.1); TOTAL PROTEIN 9.3 gm/dL (6.4-8.2)
[2022-06-26 17:59] VITALS: BP 127/71
== END 2022-06-26 19:42 | disposition home or self-care (01) ==
LOC: ED 15:21
PROVIDERS: Physician Assistant
DX: E11.65 Type 2 diabetes mellitus with hyperglycemia (principal); I10 Essential (primary) hypertension; J45.909 Unspecified asthma, uncomplicated; K21.9 Gastro-esophageal reflux disease without esophagitis; Z88.8 Allergy status to other drugs, medicaments and biological substances; Z79.899 Other long term (current) drug therapy; Z98.890 Other specified postprocedural states; Z90.49 Acquired absence of other specified parts of digestive tract

== ENCOUNTER 2022-06-28 02:29 | Emergency (ER) | payer OTHER ==
[~2022-06-28] VITALS: Wt 99.8 kg
[2022-06-28 03:07] VITALS: BP 127/84
[2022-06-28] MEDS ORDERED: VIBRAMYCIN100 MG PO ×2 (04:47)
[2022-06-28] MEDS ORDERED: CIPRODEX 0.3%-7.5 ML OT (17:42)
[2022-06-28] MEDS ORDERED: HYDROCODONE-AC1 EAC1 PO (17:42)
== END 2022-06-28 05:23 | disposition home or self-care (01) ==
LOC: ED 02:29
DX: H66.91 Otitis media, unspecified, right ear (principal); K21.9 Gastro-esophageal reflux disease without esophagitis; E78.5 Hyperlipidemia, unspecified; Z88.8 Allergy status to other drugs, medicaments and biological substances; Z88.1 Allergy status to other antibiotic agents; Z79.899 Other long term (current) drug therapy; Z90.49 Acquired absence of other specified parts of digestive tract; Z87.891 Personal history of nicotine dependence; Z98.890 Other specified postprocedural states

== ENCOUNTER 2022-06-28 14:36 | Emergency (ER) | payer OTHER ==
[~2022-06-28] VITALS: Ht 182.8 cm; Wt 99.8 kg
[~2022-06-28 14:36] MED LIST changes: +VIBRAMYCIN100 MG PO
[2022-06-28 14:38] VITALS: BP 137/82
[2022-06-28] MEDS ORDERED: CIPRODEX 0.3%-7.5 ML OT (17:42)
[2022-06-28] MEDS ORDERED: HYDROCODONE-AC1 EAC1 PO (17:42)
== END 2022-06-28 17:58 | disposition home or self-care (01) ==
LOC: ED 14:36
DX: H60.91 Unspecified otitis externa, right ear (principal); K21.9 Gastro-esophageal reflux disease without esophagitis; E78.5 Hyperlipidemia, unspecified; E10.9 Type 1 diabetes mellitus without complications; F17.200 Nicotine dependence, unspecified, uncomplicated; Z88.1 Allergy status to other antibiotic agents; Z88.8 Allergy status to other drugs, medicaments and biological substances; Z79.2 Long term (current) use of antibiotics; Z79.899 Other long term (current) drug therapy; Z79.4 Long term (current) use of insulin; Z90.49 Acquired absence of other specified parts of digestive tract; Z98.890 Other specified postprocedural states

== ENCOUNTER 2022-06-29 03:40 | Emergency (ER) | payer OTHER ==
[~2022-06-29] VITALS: Ht 182.8 cm; Wt 99.8 kg
[~2022-06-29 03:40] MED LIST changes: +CIPRODEX 0.3%-7.5 ML OT; +HYDROCODONE-AC1 EAC1 PO
[2022-06-29 04:16] VITALS: BP 117/85
== END 2022-06-29 06:39 | disposition left against medical advice (07) ==
LOC: ED 03:40
DX: H60.91 Unspecified otitis externa, right ear (principal); Z88.1 Allergy status to other antibiotic agents; Z88.8 Allergy status to other drugs, medicaments and biological substances; Z79.899 Other long term (current) drug therapy; Z90.49 Acquired absence of other specified parts of digestive tract; Z98.890 Other specified postprocedural states; Z87.891 Personal history of nicotine dependence

== ENCOUNTER 2022-06-29 08:46 | Emergency (ER) | payer OTHER ==
[~2022-06-29] VITALS: Ht 182.8 cm; Wt 99.8 kg
[2022-06-29 09:21] VITALS: BP 124/78
[2022-06-29 09:44] LABS: BASO % 0.4 % (0.0-1.0); EOS # 0.1 10*3/uL (0.0-0.4); EOS % 0.6 % (1.0-4.0); HEMATOCRIT 39.7 % (42.0-52.0); LYMPH # 1.1 10*3/uL (1.3-4.4); LYMPH % 10.1 % (27.0-41.0); MEAN CELL VOLUME 87.1 fl (80.0-94.0); MEAN CORPUSCULAR HGB 29.6 pg (27.0-31.0); MEAN PLATELET VOLUME 9.1 fl (9.6-12.3); MONO # 1.2 10*3/uL (0.1-1.0); MONO % 11.4 % (3.0-9.0); NEUT # 8.3 10*3/uL (2.3-7.9); NEUT % 77.1 % (47.0-73.0); PLATELET COUNT AUTOMATED 244 10*3/uL (130-400); RED BLOOD COUNT 4.56 10*6/uL (4.50-5.90); RED CELL DISTRI WIDTH 12.1 % (0-14.5); WHITE BLOOD COUNT 10.8 10*3/uL (4.8-10.8)
[2022-06-29 10:04] LABS: ALKALINE PHOSPHATASE 164 U/L (45-117); BUN 18 mg/dl (7-24); CHLORIDE 104 mmol/L (98-107); CREATININE 0.79 mg/dL (0.70-1.30); POTASSIUM 3.9 mmol/L (3.5-5.1); SGOT/AST 28 IU/L (3-35); SGPT/ALT 29 U/L (12-78); SODIUM 135 mmol/L (136-145); TOTAL PROTEIN 7.1 gm/dL (6.4-8.2)
== END 2022-06-29 13:58 | disposition home or self-care (01) ==
LOC: ED 08:46
PROVIDERS: Emergency Medicine
DX: H60.91 Unspecified otitis externa, right ear (principal); K21.9 Gastro-esophageal reflux disease without esophagitis; E78.5 Hyperlipidemia, unspecified; Z88.1 Allergy status to other antibiotic agents; Z79.899 Other long term (current) drug therapy; Z90.49 Acquired absence of other specified parts of digestive tract; Z98.890 Other specified postprocedural states; Z87.891 Personal history of nicotine dependence

== ENCOUNTER 2022-08-24 23:42 | Emergency (ER) | payer OTHER ==
[~2022-08-24] VITALS: Ht 185.4 cm; Wt 97.5 kg
[2022-08-25 00:52] VITALS: BP 168/95
== END 2022-08-25 05:11 | disposition left against medical advice (07) ==
LOC: ED 23:42
DX: M51.36 Other intervertebral disc degeneration, lumbar region (principal); I10 Essential (primary) hypertension; K21.9 Gastro-esophageal reflux disease without esophagitis; E78.5 Hyperlipidemia, unspecified; E10.9 Type 1 diabetes mellitus without complications; Z88.8 Allergy status to other drugs, medicaments and biological substances; Z88.1 Allergy status to other antibiotic agents; Z79.899 Other long term (current) drug therapy; Z90.49 Acquired absence of other specified parts of digestive tract; Z98.890 Other specified postprocedural states; Z87.891 Personal history of nicotine dependence

== ENCOUNTER 2022-08-28 22:26 | Emergency (ER) | payer OTHER ==
[~2022-08-28] VITALS: Ht 182.8 cm; Wt 99.8 kg
[2022-08-28 22:55] VITALS: BP 128/80
[2022-08-29] MEDS ORDERED: GABAPENTIN800 MG PO (00:03)
[2022-08-29] MEDS ORDERED: RELAFEN500 M1 PO (00:03)
[2022-08-29] MEDS ORDERED: Orphenadrine C100 MG PO (00:03)
== END 2022-08-29 00:12 | disposition home or self-care (01) ==
LOC: ED 22:26
DX: M54.9 Dorsalgia, unspecified (principal); F17.200 Nicotine dependence, unspecified, uncomplicated; Z90.49 Acquired absence of other specified parts of digestive tract; Z98.890 Other specified postprocedural states; Z79.899 Other long term (current) drug therapy; Z88.6 Allergy status to analgesic agent; Z88.1 Allergy status to other antibiotic agents

== ENCOUNTER 2022-09-03 22:59 | Emergency (ER) | payer OTHER ==
[~2022-09-03] VITALS: Ht 185.4 cm; Wt 99.8 kg
[~2022-09-03 22:59] MED LIST changes: +GABAPENTIN800 MG PO; +Orphenadrine C100 MG PO; +RELAFEN500 M1 PO
[2022-09-03 23:06] VITALS: BP 121/93
== END 2022-09-04 01:54 | disposition left against medical advice (07) ==
LOC: ED 22:59
DX: M51.36 Other intervertebral disc degeneration, lumbar region (principal); I10 Essential (primary) hypertension; E78.5 Hyperlipidemia, unspecified; K21.9 Gastro-esophageal reflux disease without esophagitis; E10.9 Type 1 diabetes mellitus without complications; Z88.8 Allergy status to other drugs, medicaments and biological substances; Z88.1 Allergy status to other antibiotic agents; Z79.899 Other long term (current) drug therapy; Z90.49 Acquired absence of other specified parts of digestive tract; Z98.890 Other specified postprocedural states; Z87.891 Personal history of nicotine dependence

== ENCOUNTER 2022-10-16 09:11 | Emergency (ER) | payer OTHER ==
[~2022-10-16] VITALS: Ht 182.8 cm; Wt 99.8 kg
[2022-10-16 09:17] VITALS: BP 118/56
[2022-10-16 10:01] LABS: BASO % 0.4 % (0.0-1.0); EOS % 0.3 % (1.0-4.0); HEMATOCRIT 49.1 % (42.0-52.0); LYMPH # 0.8 10*3/uL (1.3-4.4); LYMPH % 7.6 % (27.0-41.0); MEAN CELL VOLUME 86.3 fl (80.0-94.0); MEAN CORPUSCULAR HGB 28.6 pg (27.0-31.0); MEAN CORPUSCULAR HGB CONC 33.2 g/dl (33.0-37.0); MEAN PLATELET VOLUME 9.1 fl (9.6-12.3); MONO # 0.4 10*3/uL (0.1-1.0); MONO % 3.5 % (3.0-9.0); NEUT # 8.7 10*3/uL (2.3-7.9); NEUT % 87.7 % (47.0-73.0); PLATELET COUNT AUTOMATED 317 10*3/uL (130-400); RED BLOOD COUNT 5.69 10*6/uL (4.50-5.90); RED CELL DISTRI WIDTH 12.5 % (0-14.5)
[2022-10-16 10:18] LABS: ALKALINE PHOSPHATASE 181 U/L (46-116); BUN 18 mg/dl (9-23); CHLORIDE 94 mmol/L (98-107); CREATININE 1.16 mg/dL (0.70-1.30); LIPASE 27 U/L (12-53); POTASSIUM 5.1 mmol/L (3.4-5.1); SGPT/ALT 36 U/L (10-49); TOTAL PROTEIN 8.3 gm/dL (6.0-8.0)
[2022-10-16 10:36] LABS: BILIRUBIN Negative (Negative); BLOOD Negative (Negative); CLARITY Clear (Clear); COLOR Yellow (Yellow); GLUCOSE 3+ (Negative); KETONE 4+ (Negative); LEUKO ESTERASE Negative (Negative); NITRITE Negative (Negative); SPECIFIC GRAVITY >= 1.030 (1.001-1.030); UROBILINOGEN 0.2 E.U./dl (0.0-1.0)
[2022-10-16 10:51] LABS: EPITHELIAL CELLS 0-2; WBC 0-2 wbc/hpf (0-5)
== END 2022-10-16 10:56 | disposition left against medical advice (07) ==
LOC: ED 09:11
PROVIDERS: Internal Medicine
DX: E11.10 Type 2 diabetes mellitus with ketoacidosis without coma (principal); I10 Essential (primary) hypertension; K21.9 Gastro-esophageal reflux disease without esophagitis; Z88.1 Allergy status to other antibiotic agents; Z88.8 Allergy status to other drugs, medicaments and biological substances; Z79.899 Other long term (current) drug therapy; Z90.49 Acquired absence of other specified parts of digestive tract; Z98.890 Other specified postprocedural states; Z87.891 Personal history of nicotine dependence

== ENCOUNTER 2022-10-16 12:51 | Inpatient (IN) | payer OTHER ==
[~2022-10-16] VITALS: Ht 182.9 cm; Wt 94.0 kg
[2022-10-16 12:56] VITALS: BP 143/68
[2022-10-16 13:46] LABS: MEAN CELL VOLUME 88.2 fl (80.0-94.0); MEAN CORPUSCULAR HGB 29.3 pg (27.0-31.0); MEAN CORPUSCULAR HGB CONC 33.2 g/dl (33.0-37.0); MEAN PLATELET VOLUME 9.1 fl (9.6-12.3); PLATELET COUNT AUTOMATED 352 10*3/uL (130-400); RED BLOOD COUNT 5.33 10*6/uL (4.50-5.90); RED CELL DISTRI WIDTH 12.7 % (0-14.5); WHITE BLOOD COUNT 21.4 10*3/uL (4.8-10.8)
[2022-10-16 13:49] LABS: MANUAL DIFF REFLEX YES
[2022-10-16 14:00] LABS: BUN 22 mg/dl (9-23); CHLORIDE 95 mmol/L (98-107)
[2022-10-16 14:06] LABS: POTASSIUM 6.1 mmol/L (3.4-5.1)
[2022-10-16 14:06] LABS: TOTAL CELLS COUNTED 100 #CELLS
[2022-10-16 14:07] LABS: PLATELET SUFFICIENCY NORMAL (NORMAL)
[2022-10-16 14:56] VITALS: BP 116/59
[2022-10-16 15:26] LABS: BILIRUBIN Negative (Negative); BLOOD Negative (Negative); CLARITY Clear (Clear); COLOR Yellow (Yellow); GLUCOSE 3+ (Negative); KETONE 4+ (Negative); LEUKO ESTERASE Negative (Negative); NITRITE Negative (Negative); PH 5.5 (4.5-8.0); SPECIFIC GRAVITY >= 1.030 (1.001-1.030); UROBILINOGEN 0.2 E.U./dl (0.0-1.0)
[2022-10-16 15:30] VITALS: BP 126/65
[2022-10-16 15:37] LABS: HYALINE CAST 0-2; MUCOUS 1+; RBC 0-2 rbc/hpf (0-2); WBC 0-2 wbc/hpf (0-5)
[2022-10-16 17:46] LABS: BUN 21 mg/dl (9-23); CHLORIDE 105 mmol/L (98-107)
[2022-10-16 20:00] VITALS: BP 121/74
[2022-10-16 21:56] LABS: BUN 18 mg/dl (9-23); CHLORIDE 106 mmol/L (98-107); POTASSIUM 4.2 mmol/L (3.4-5.1)
[2022-10-17] VITALS: BP 125/71
[2022-10-17 02:04] LABS: BUN 17 mg/dl (9-23); CHLORIDE 110 mmol/L (98-107); POTASSIUM 3.8 mmol/L (3.4-5.1)
[2022-10-17 04:00] VITALS: BP 106/73
[2022-10-17 06:00] LABS: ALKALINE PHOSPHATASE 126 U/L (46-116); BUN 15 mg/dl (9-23); CHLORIDE 107 mmol/L (98-107); POTASSIUM 4.1 mmol/L (3.4-5.1); SGPT/ALT 27 U/L (10-49); TOTAL PROTEIN 7.2 gm/dL (6.0-8.0)
[2022-10-17 06:33] LABS: HEMATOCRIT 41.7 % (42.0-52.0); MEAN CELL VOLUME 86.2 fl (80.0-94.0); MEAN CORPUSCULAR HGB 29.5 pg (27.0-31.0); MEAN CORPUSCULAR HGB CONC 34.3 g/dl (33.0-37.0); PLATELET COUNT AUTOMATED 313 10*3/uL (130-400); RED BLOOD COUNT 4.84 10*6/uL (4.50-5.90); RED CELL DISTRI WIDTH 12.9 % (0-14.5); WHITE BLOOD COUNT 17.5 10*3/uL (4.8-10.8)
[2022-10-17 06:35] LABS: MANUAL DIFF REFLEX YES
[2022-10-17 07:40] LABS: PLATELET SUFFICIENCY NORMAL (NORMAL); POLYCHROMASIA SLIGHT; TOTAL CELLS COUNTED 100 #CELLS
[2022-10-17 07:41] LABS: TOXIC GRANULATION SLIGHT
[2022-10-17 08:00] VITALS: BP 108/70
[2022-10-17 10:35] LABS: BUN 13 mg/dl (9-23); CHLORIDE 105 mmol/L (98-107); POTASSIUM 3.9 mmol/L (3.4-5.1)
[2022-10-17 12:00] VITALS: BP 110/72
[2022-10-17 14:49] LABS: BUN 14 mg/dl (9-23); CHLORIDE 105 mmol/L (98-107)
== END 2022-10-17 15:16 | disposition home or self-care (01) | DRG 420 ==
LOC: ED 12:51 → ICCU 13:09 → EDHOLD 13:09 → ICCU 13:30
PROVIDERS: Internal Medicine; ADMIT Internal Medicine; ATTEND Internal Medicine
DX: E10.10 Type 1 diabetes mellitus with ketoacidosis without coma (principal); K50.90 Crohn's disease, unspecified, without complications; K21.9 Gastro-esophageal reflux disease without esophagitis; E78.5 Hyperlipidemia, unspecified; D70.8 Other neutropenia; E87.1 Hypo-osmolality and hyponatremia; R74.01 Elevation of levels of liver transaminase levels; R74.8 Abnormal levels of other serum enzymes; Z88.8 Allergy status to other drugs, medicaments and biological substances; Z90.49 Acquired absence of other specified parts of digestive tract; Z82.49 Family history of ischemic heart disease and other diseases of the circulatory system; Z85.038 Personal history of other malignant neoplasm of large intestine

== ENCOUNTER 2022-10-20 00:58 | Emergency (ER) | payer OTHER ==
[~2022-10-20] VITALS: Ht 180.3 cm; Wt 99.8 kg
[2022-10-20 01:28] LABS: BASO % 0.6 % (0.0-1.0); EOS # 0.1 10*3/uL (0.0-0.4); EOS % 1.1 % (1.0-4.0); HEMATOCRIT 37.6 % (42.0-52.0); LYMPH # 1.5 10*3/uL (1.3-4.4); LYMPH % 28.1 % (27.0-41.0); MEAN CELL VOLUME 85.1 fl (80.0-94.0); MEAN CORPUSCULAR HGB 29.4 pg (27.0-31.0); MEAN CORPUSCULAR HGB CONC 34.6 g/dl (33.0-37.0); MONO # 0.6 10*3/uL (0.1-1.0); MONO % 10.6 % (3.0-9.0); NEUT # 3.2 10*3/uL (2.3-7.9); NEUT % 59.2 % (47.0-73.0); PLATELET COUNT AUTOMATED 220 10*3/uL (130-400); RED BLOOD COUNT 4.42 10*6/uL (4.50-5.90); RED CELL DISTRI WIDTH 12.1 % (0-14.5); WHITE BLOOD COUNT 5.4 10*3/uL (4.8-10.8)
[2022-10-20 02:49] LABS: ALKALINE PHOSPHATASE 171 U/L (46-116); BUN 12 mg/dl (9-23); CHLORIDE 94 mmol/L (98-107); POTASSIUM 4.4 mmol/L (3.4-5.1); SGPT/ALT 21 U/L (10-49)
[2022-10-20 03:01] LABS: BILIRUBIN Negative (Negative); BLOOD Negative (Negative); CLARITY Clear (Clear); COLOR Yellow (Yellow); GLUCOSE 3+ (Negative); KETONE 1+ (Negative); LEUKO ESTERASE Negative (Negative); NITRITE Negative (Negative); PH 5.5 (4.5-8.0); SPECIFIC GRAVITY >= 1.030 (1.001-1.030); UROBILINOGEN 0.2 E.U./dl (0.0-1.0)
[2022-10-20 03:14] LABS: RBC 0-2 rbc/hpf (0-2)
[2022-10-20 05:51] VITALS: BP 138/77
== END 2022-10-20 05:39 | disposition home or self-care (01) ==
LOC: ED 00:58
PROVIDERS: Internal Medicine
DX: E11.65 Type 2 diabetes mellitus with hyperglycemia (principal); I10 Essential (primary) hypertension; K21.9 Gastro-esophageal reflux disease without esophagitis; J45.909 Unspecified asthma, uncomplicated; Z88.1 Allergy status to other antibiotic agents; Z88.8 Allergy status to other drugs, medicaments and biological substances; Z79.899 Other long term (current) drug therapy; Z90.49 Acquired absence of other specified parts of digestive tract; Z98.890 Other specified postprocedural states; Z87.891 Personal history of nicotine dependence

== ENCOUNTER 2022-10-21 05:19 | Emergency (ER) | payer OTHER ==
[~2022-10-21] VITALS: Ht 177.8 cm; Wt 95.7 kg
[2022-10-21 05:27] VITALS: BP 148/79
[2022-10-21 06:04] LABS: BASO % 0.5 % (0.0-1.0); EOS % 0.5 % (1.0-4.0); HEMATOCRIT 44.9 % (42.0-52.0); LYMPH # 1.1 10*3/uL (1.3-4.4); LYMPH % 17.7 % (27.0-41.0); MEAN CELL VOLUME 85.4 fl (80.0-94.0); MEAN CORPUSCULAR HGB 29.5 pg (27.0-31.0); MEAN CORPUSCULAR HGB CONC 34.5 g/dl (33.0-37.0); MEAN PLATELET VOLUME 9.1 fl (9.6-12.3); MONO # 0.4 10*3/uL (0.1-1.0); MONO % 6.4 % (3.0-9.0); NEUT # 4.7 10*3/uL (2.3-7.9); NEUT % 73.6 % (47.0-73.0); PLATELET COUNT AUTOMATED 282 10*3/uL (130-400); RED BLOOD COUNT 5.26 10*6/uL (4.50-5.90); RED CELL DISTRI WIDTH 11.9 % (0-14.5); WHITE BLOOD COUNT 6.4 10*3/uL (4.8-10.8)
[2022-10-21 06:20] LABS: ALKALINE PHOSPHATASE 213 U/L (46-116); BUN 18 mg/dl (9-23); CHLORIDE 91 mmol/L (98-107); SGPT/ALT 28 U/L (10-49); TOTAL PROTEIN 8.2 gm/dL (6.0-8.0)
[2022-10-21 10:04] LABS: BUN 13 mg/dl (9-23); CHLORIDE 100 mmol/L (98-107); POTASSIUM 5.6 mmol/L (3.4-5.1)
== END 2022-10-21 10:45 | disposition admitted as inpatient to this hospital (09) ==
LOC: ED 05:19 → EDHOLD 07:26 → ED 07:26
PROVIDERS: Internal Medicine; Student in an Organized Health Care Education/Training Program
DX: E11.10 Type 2 diabetes mellitus with ketoacidosis without coma (principal); E87.8 Other disorders of electrolyte and fluid balance, not elsewhere classified; Z88.1 Allergy status to other antibiotic agents; Z88.8 Allergy status to other drugs, medicaments and biological substances; Z79.899 Other long term (current) drug therapy; Z90.49 Acquired absence of other specified parts of digestive tract; Z98.890 Other specified postprocedural states; Z87.891 Personal history of nicotine dependence

== ENCOUNTER 2023-05-16 21:54 | Emergency (ER) | payer BC, OTHER ==
[~2023-05-16] VITALS: Ht 167.6 cm; Wt 108.9 kg
[2023-05-16 22:01] VITALS: BP 154/85
[2023-05-16] MEDS ORDERED: LANTUS SOL100 UNIT/1 SC (22:01)
[2023-05-16 22:26] LABS: BASO % 0.4 % (0.0-1.0); EOS % 0.3 % (1.0-4.0); HEMATOCRIT 41.7 % (42.0-52.0); LYMPH # 1.8 10*3/uL (1.3-4.4); LYMPH % 19.8 % (27.0-41.0); MEAN CELL VOLUME 85.1 fl (80.0-94.0); MEAN CORPUSCULAR HGB 29.8 pg (27.0-31.0); MONO # 0.7 10*3/uL (0.1-1.0); MONO % 8.1 % (3.0-9.0); NEUT # 6.4 10*3/uL (2.3-7.9); NEUT % 71.1 % (47.0-73.0); PLATELET COUNT AUTOMATED 287 10*3/uL (130-400)
[2023-05-16 22:46] LABS: ALKALINE PHOSPHATASE 126 U/L (46-116); BUN 12 mg/dl (9-23); CHLORIDE 101 mmol/L (98-107); POTASSIUM 3.7 mmol/L (3.4-5.1); SGPT/ALT 23 U/L (10-49); TOTAL PROTEIN 7.6 gm/dL (6.0-8.0)
== END 2023-05-17 00:54 | disposition home or self-care (01) ==
LOC: ED 21:54
PROVIDERS: Internal Medicine
DX: E10.65 Type 1 diabetes mellitus with hyperglycemia (principal); R11.0 Nausea; R53.83 Other fatigue; F17.200 Nicotine dependence, unspecified, uncomplicated; Z88.1 Allergy status to other antibiotic agents; Z88.8 Allergy status to other drugs, medicaments and biological substances; Z79.899 Other long term (current) drug therapy; Z79.4 Long term (current) use of insulin; Z79.2 Long term (current) use of antibiotics; Z90.49 Acquired absence of other specified parts of digestive tract; Z98.890 Other specified postprocedural states

== ENCOUNTER 2023-05-27 21:16 | Emergency (ER) | payer OTHER ==
[~2023-05-27] VITALS: Ht 185.4 cm; Wt 102.1 kg
[~2023-05-27 21:16] MED LIST changes: +LANTUS SOL100 UNIT/1 SC
[2023-05-27 22:07] VITALS: BP 134/81
[2023-05-27 22:27] LABS: BASO % 0.3 % (0.0-1.0); EOS # 0.1 10*3/uL (0.0-0.4); EOS % 1.1 % (1.0-4.0); HEMATOCRIT 41.6 % (42.0-52.0); LYMPH # 1.6 10*3/uL (1.3-4.4); LYMPH % 17.3 % (27.0-41.0); MEAN CELL VOLUME 86.7 fl (80.0-94.0); MEAN CORPUSCULAR HGB CONC 34.6 g/dl (33.0-37.0); MEAN PLATELET VOLUME 9.8 fl (9.6-12.3); MONO # 0.7 10*3/uL (0.1-1.0); NEUT % 74.1 % (47.0-73.0); PLATELET COUNT AUTOMATED 286 10*3/uL (130-400); RED CELL DISTRI WIDTH 11.9 % (0-14.5); WHITE BLOOD COUNT 9.4 10*3/uL (4.8-10.8)
[2023-05-27 22:38] LABS: ACT PARTIAL THROMBO TIME 26.6 SECONDS (20.0-32.1)
[2023-05-27 22:40] LABS: BILIRUBIN Negative (Negative); BLOOD Negative (Negative); CLARITY Clear (Clear); COLOR Yellow (Yellow); GLUCOSE 3+ (Negative); KETONE Trace (Negative); LEUKO ESTERASE Negative (Negative); NITRITE Negative (Negative); SPECIFIC GRAVITY 1.025 (1.001-1.030); UROBILINOGEN 0.2 E.U./dl (0.0-1.0)
[2023-05-27 22:55] LABS: WBC 0-2 wbc/hpf (0-5)
[2023-05-27 22:58] LABS: ALKALINE PHOSPHATASE 174 U/L (46-116); BUN 18 mg/dl (9-23); CHLORIDE 94 mmol/L (98-107); LIPASE 36 U/L (12-53); POTASSIUM 5.9 mmol/L (3.4-5.1); SGPT/ALT 25 U/L (10-49); TOTAL PROTEIN 7.4 gm/dL (6.0-8.0)
== END 2023-05-27 22:52 | disposition left against medical advice (07) ==
LOC: ED 21:16
PROVIDERS: Internal Medicine
DX: E11.65 Type 2 diabetes mellitus with hyperglycemia (principal); J45.909 Unspecified asthma, uncomplicated; I10 Essential (primary) hypertension; K21.9 Gastro-esophageal reflux disease without esophagitis; Z88.8 Allergy status to other drugs, medicaments and biological substances; Z90.49 Acquired absence of other specified parts of digestive tract; Z98.890 Other specified postprocedural states; F17.200 Nicotine dependence, unspecified, uncomplicated

== ENCOUNTER → 2023-10-14 | Outpatient (CLI) | payer OTHER | END | disposition home or self-care (01) | LOC: WOUNDCARE 04:24 | PROVIDERS: ATTEND Nurse Practitioner Family | DX: E11.621 Type 2 diabetes mellitus with foot ulcer (principal); L97.522 Non-pressure chronic ulcer of other part of left foot with fat layer exposed; E11.622 Type 2 diabetes mellitus with other skin ulcer; L97.811 Non-pressure chronic ulcer of other part of right lower leg limited to breakdown of skin; L84 Corns and callosities; E11.65 Type 2 diabetes mellitus with hyperglycemia; E11.51 Type 2 diabetes mellitus with diabetic peripheral angiopathy without gangrene; E78.5 Hyperlipidemia, unspecified; K21.9 Gastro-esophageal reflux disease without esophagitis; M48.061 Spinal stenosis, lumbar region without neurogenic claudication; F17.210 Nicotine dependence, cigarettes, uncomplicated; Z71.6 Tobacco abuse counseling; Z90.49 Acquired absence of other specified parts of digestive tract ==

== ENCOUNTER → 2023-10-21 | Outpatient (CLI) | payer OTHER | END | disposition home or self-care (01) | LOC: WOUNDCARE 01:09 | PROVIDERS: ATTEND Nurse Practitioner Family | DX: E11.621 Type 2 diabetes mellitus with foot ulcer (principal); L97.522 Non-pressure chronic ulcer of other part of left foot with fat layer exposed; E11.622 Type 2 diabetes mellitus with other skin ulcer; L97.812 Non-pressure chronic ulcer of other part of right lower leg with fat layer exposed; E11.65 Type 2 diabetes mellitus with hyperglycemia; E11.51 Type 2 diabetes mellitus with diabetic peripheral angiopathy without gangrene; K21.9 Gastro-esophageal reflux disease without esophagitis; E78.5 Hyperlipidemia, unspecified; F17.210 Nicotine dependence, cigarettes, uncomplicated; Z90.49 Acquired absence of other specified parts of digestive tract ==

== ENCOUNTER → 2023-10-30 | Outpatient (CLI) | payer OTHER | END | disposition home or self-care (01) | LOC: WOUNDCARE 00:45 → Z2ND 13:48 → WOUNDCARE 13:50 | PROVIDERS: ATTEND Nurse Practitioner Family | DX: E11.621 Type 2 diabetes mellitus with foot ulcer (principal); L97.521 Non-pressure chronic ulcer of other part of left foot limited to breakdown of skin; L97.811 Non-pressure chronic ulcer of other part of right lower leg limited to breakdown of skin; E11.51 Type 2 diabetes mellitus with diabetic peripheral angiopathy without gangrene; E11.65 Type 2 diabetes mellitus with hyperglycemia; K21.9 Gastro-esophageal reflux disease without esophagitis; M51.36 Other intervertebral disc degeneration, lumbar region; M48.061 Spinal stenosis, lumbar region without neurogenic claudication; E78.5 Hyperlipidemia, unspecified; F17.210 Nicotine dependence, cigarettes, uncomplicated; Z90.49 Acquired absence of other specified parts of digestive tract ==

== ENCOUNTER → 2023-11-06 | Outpatient (CLI) | payer OTHER | END | disposition home or self-care (01) | LOC: WOUNDCARE 04:18 | PROVIDERS: ATTEND Nurse Practitioner Family | DX: E11.621 Type 2 diabetes mellitus with foot ulcer (principal); L97.522 Non-pressure chronic ulcer of other part of left foot with fat layer exposed; E11.51 Type 2 diabetes mellitus with diabetic peripheral angiopathy without gangrene; E11.65 Type 2 diabetes mellitus with hyperglycemia; L84 Corns and callosities; K21.9 Gastro-esophageal reflux disease without esophagitis; M51.36 Other intervertebral disc degeneration, lumbar region; E78.5 Hyperlipidemia, unspecified; F17.210 Nicotine dependence, cigarettes, uncomplicated; Z90.49 Acquired absence of other specified parts of digestive tract; Z79.4 Long term (current) use of insulin ==

== ENCOUNTER 2023-11-07 22:53 | Emergency (ER) | payer OTHER ==
[~2023-11-07] VITALS: Ht 182.8 cm; Wt 102.1 kg
[2023-11-08] VITALS: BP 130/52
== END 2023-11-08 00:37 | disposition left against medical advice (07) ==
LOC: ED 22:53
DX: M54.50 Low back pain, unspecified (principal); E11.9 Type 2 diabetes mellitus without complications; F17.200 Nicotine dependence, unspecified, uncomplicated; Z88.1 Allergy status to other antibiotic agents; Z88.8 Allergy status to other drugs, medicaments and biological substances; Z79.4 Long term (current) use of insulin; Z79.899 Other long term (current) drug therapy; Z90.49 Acquired absence of other specified parts of digestive tract; Z98.890 Other specified postprocedural states; Z53.29 Procedure and treatment not carried out because of patient's decision for other reasons

== ENCOUNTER → 2023-11-20 | Outpatient (CLI) | payer OTHER | END | disposition home or self-care (01) | LOC: WOUNDCARE 10-28 00:34 | PROVIDERS: ATTEND Nurse Practitioner Family | DX: E11.621 Type 2 diabetes mellitus with foot ulcer (principal); L97.521 Non-pressure chronic ulcer of other part of left foot limited to breakdown of skin; E11.51 Type 2 diabetes mellitus with diabetic peripheral angiopathy without gangrene; E11.65 Type 2 diabetes mellitus with hyperglycemia; L84 Corns and callosities; K21.9 Gastro-esophageal reflux disease without esophagitis; E78.5 Hyperlipidemia, unspecified; M51.36 Other intervertebral disc degeneration, lumbar region; M48.061 Spinal stenosis, lumbar region without neurogenic claudication; F17.210 Nicotine dependence, cigarettes, uncomplicated; Z90.49 Acquired absence of other specified parts of digestive tract; Z79.4 Long term (current) use of insulin ==

== ENCOUNTER → 2023-11-27 | Outpatient (CLI) | payer OTHER | END | disposition home or self-care (01) | LOC: WOUNDCARE 01:33 | PROVIDERS: ATTEND Nurse Practitioner Family | DX: E11.621 Type 2 diabetes mellitus with foot ulcer (principal); L97.521 Non-pressure chronic ulcer of other part of left foot limited to breakdown of skin; E11.65 Type 2 diabetes mellitus with hyperglycemia; E11.51 Type 2 diabetes mellitus with diabetic peripheral angiopathy without gangrene; L84 Corns and callosities; K21.9 Gastro-esophageal reflux disease without esophagitis; M51.36 Other intervertebral disc degeneration, lumbar region; M48.061 Spinal stenosis, lumbar region without neurogenic claudication; E78.5 Hyperlipidemia, unspecified; F17.210 Nicotine dependence, cigarettes, uncomplicated; Z90.49 Acquired absence of other specified parts of digestive tract; Z79.4 Long term (current) use of insulin ==

== ENCOUNTER → 2023-12-02 | Outpatient (CLI) | payer OTHER | LOC: WOUNDCARE 13:30 | PROVIDERS: ATTEND Nurse Practitioner Family | DX: S81.801A Unspecified open wound, right lower leg, initial encounter (principal); E11.621 Type 2 diabetes mellitus with foot ulcer; L97.509 Non-pressure chronic ulcer of other part of unspecified foot with unspecified severity; E11.65 Type 2 diabetes mellitus with hyperglycemia; E11.51 Type 2 diabetes mellitus with diabetic peripheral angiopathy without gangrene; K21.9 Gastro-esophageal reflux disease without esophagitis; K50.90 Crohn's disease, unspecified, without complications; M51.36 Other intervertebral disc degeneration, lumbar region; M48.061 Spinal stenosis, lumbar region without neurogenic claudication; E78.5 Hyperlipidemia, unspecified; F17.210 Nicotine dependence, cigarettes, uncomplicated; Z90.49 Acquired absence of other specified parts of digestive tract; X58.XXXA Exposure to other specified factors, initial encounter; Y93.89 Activity, other specified; Y92.89 Other specified places as the place of occurrence of the external cause; Y99.8 Other external cause status ==

== ENCOUNTER → 2023-12-28 | Outpatient (CLI) | payer OTHER ==
[~2023-12-28] MED LIST changes: +MELOXICAM15 MG PO
== END | disposition home or self-care (01) ==
LOC: WOUNDCARE 12:27
PROVIDERS: ATTEND Nurse Practitioner Family
DX: E11.621 Type 2 diabetes mellitus with foot ulcer (principal); L97.521 Non-pressure chronic ulcer of other part of left foot limited to breakdown of skin; E11.65 Type 2 diabetes mellitus with hyperglycemia; E11.51 Type 2 diabetes mellitus with diabetic peripheral angiopathy without gangrene; E78.5 Hyperlipidemia, unspecified; I10 Essential (primary) hypertension; K21.9 Gastro-esophageal reflux disease without esophagitis; K58.9 Irritable bowel syndrome, unspecified; M51.36 Other intervertebral disc degeneration, lumbar region; M48.061 Spinal stenosis, lumbar region without neurogenic claudication; F17.210 Nicotine dependence, cigarettes, uncomplicated; Z79.4 Long term (current) use of insulin; Z79.899 Other long term (current) drug therapy; Z90.49 Acquired absence of other specified parts of digestive tract; Z71.6 Tobacco abuse counseling

== ENCOUNTER 2023-12-29 20:38 | Emergency (ER) | payer OTHER ==
[~2023-12-29] VITALS: Ht 185.4 cm; Wt 95.3 kg
[~2023-12-29 20:38] MED LIST changes: -MELOXICAM15 MG PO
[2023-12-29 20:56] LABS: BASO % 0.4 % (0.0-1.0); EOS # 0.1 10*3/uL (0.0-0.4); EOS % 0.8 % (1.0-4.0); HEMATOCRIT 46.2 % (42.0-52.0); LYMPH # 1.7 10*3/uL (1.3-4.4); LYMPH % 16.9 % (27.0-41.0); MEAN CELL VOLUME 86.2 fl (80.0-94.0); MEAN CORPUSCULAR HGB 28.7 pg (27.0-31.0); MEAN CORPUSCULAR HGB CONC 33.3 g/dl (33.0-37.0); MEAN PLATELET VOLUME 8.9 fl (9.6-12.3); MONO # 0.8 10*3/uL (0.1-1.0); MONO % 8.2 % (3.0-9.0); NEUT # 7.2 10*3/uL (2.3-7.9); NEUT % 73.5 % (47.0-73.0); PLATELET COUNT AUTOMATED 314 10*3/uL (130-400); RED BLOOD COUNT 5.36 10*6/uL (4.50-5.90); RED CELL DISTRI WIDTH 12.2 % (0-14.5); WHITE BLOOD COUNT 9.8 10*3/uL (4.8-10.8)
[2023-12-29 21:07] LABS: ACT PARTIAL THROMBO TIME 26.6 SECONDS (20.0-32.1)
[2023-12-29 21:14] LABS: ALKALINE PHOSPHATASE 124 U/L (46-116); BUN 11 mg/dl (9-23); CHLORIDE 99 mmol/L (98-107); POTASSIUM 3.6 mmol/L (3.4-5.1); SGPT/ALT 27 U/L (5-49); TOTAL PROTEIN 8.2 gm/dL (6.0-8.0)
[2023-12-29] MEDS ORDERED: MORPHINE Sulfate 2 MG/ML SYR IV ONE (22:15)
[2023-12-29] MEDS ORDERED: SODIUM CHLORIDE 0.9% 1,000 ML IV ONE (22:15)
[2023-12-29] MEDS ORDERED: Ondansetron Hydrochloride 4 MG/2 ML VIAL IV ONE (22:15)
[2023-12-29] MEDS ORDERED: Metoclopramide Hydrochloride 10 MG/2 ML AMP IV ONE (22:20)
[2023-12-29] MEDS ORDERED: diphenhydrAMINE hydrochloride 50 MG/ML VIAL IV ONE (22:20)
[2023-12-29] MEDS ORDERED: Ketorolac Tromethamine 30 MG/ML VIAL IV ONE (22:20)
[2023-12-29 22:33] VITALS: BP 127/78
== END 2023-12-29 23:45 | disposition home or self-care (01) ==
LOC: ED 20:38
PROVIDERS: Emergency Medicine
DX: R07.89 Other chest pain (principal); R51.9 Headache, unspecified; E78.00 Pure hypercholesterolemia, unspecified; I10 Essential (primary) hypertension; E87.1 Hypo-osmolality and hyponatremia; K21.9 Gastro-esophageal reflux disease without esophagitis; E10.65 Type 1 diabetes mellitus with hyperglycemia; E10.10 Type 1 diabetes mellitus with ketoacidosis without coma; J45.909 Unspecified asthma, uncomplicated; F17.200 Nicotine dependence, unspecified, uncomplicated; Z88.8 Allergy status to other drugs, medicaments and biological substances; Z90.49 Acquired absence of other specified parts of digestive tract; Z98.890 Other specified postprocedural states; Z95.5 Presence of coronary angioplasty implant and graft

== ENCOUNTER 2023-12-31 10:32 | Emergency (ER) | payer OTHER ==
[~2023-12-31] VITALS: Ht 185.4 cm; Wt 104.3 kg
[2023-12-31 10:42] VITALS: BP 152/82
[2023-12-31] MEDS ORDERED: ACETAMINOPHEN 325 MG TAB PO ONE (10:45)
[2023-12-31] MEDS ORDERED: MELOXICAM15 MG PO (11:57)
== END 2023-12-31 12:15 | disposition home or self-care (01) ==
LOC: ED 10:32
DX: S43.401A Unspecified sprain of right shoulder joint, initial encounter (principal); J45.909 Unspecified asthma, uncomplicated; I10 Essential (primary) hypertension; K21.9 Gastro-esophageal reflux disease without esophagitis; Z95.5 Presence of coronary angioplasty implant and graft; E11.10 Type 2 diabetes mellitus with ketoacidosis without coma; Z88.8 Allergy status to other drugs, medicaments and biological substances; Z90.49 Acquired absence of other specified parts of digestive tract; Z98.890 Other specified postprocedural states; F17.200 Nicotine dependence, unspecified, uncomplicated; W19.XXXA Unspecified fall, initial encounter; Y93.89 Activity, other specified; Y92.89 Other specified places as the place of occurrence of the external cause; Y99.8 Other external cause status

== ENCOUNTER → 2024-01-04 | Outpatient (CLI) | payer OTHER ==
[~2024-01-04] MED LIST changes: +MELOXICAM15 MG PO
== END | disposition home or self-care (01) ==
LOC: WOUNDCARE 01:13
PROVIDERS: ATTEND Nurse Practitioner Family
DX: E11.621 Type 2 diabetes mellitus with foot ulcer (principal); L97.521 Non-pressure chronic ulcer of other part of left foot limited to breakdown of skin; E11.65 Type 2 diabetes mellitus with hyperglycemia; E11.51 Type 2 diabetes mellitus with diabetic peripheral angiopathy without gangrene; E78.5 Hyperlipidemia, unspecified; I10 Essential (primary) hypertension; K21.9 Gastro-esophageal reflux disease without esophagitis; K58.9 Irritable bowel syndrome, unspecified; M51.36 Other intervertebral disc degeneration, lumbar region; M48.061 Spinal stenosis, lumbar region without neurogenic claudication; F17.210 Nicotine dependence, cigarettes, uncomplicated; Z79.4 Long term (current) use of insulin; Z79.899 Other long term (current) drug therapy; Z90.49 Acquired absence of other specified parts of digestive tract; Z71.6 Tobacco abuse counseling

== ENCOUNTER → 2024-01-11 | Outpatient (CLI) | payer OTHER | END | disposition home or self-care (01) | LOC: WOUNDCARE 00:25 | PROVIDERS: ATTEND Nurse Practitioner Family | DX: E11.621 Type 2 diabetes mellitus with foot ulcer (principal); L97.511 Non-pressure chronic ulcer of other part of right foot limited to breakdown of skin; E11.65 Type 2 diabetes mellitus with hyperglycemia; E11.51 Type 2 diabetes mellitus with diabetic peripheral angiopathy without gangrene; E78.5 Hyperlipidemia, unspecified; I10 Essential (primary) hypertension; K21.9 Gastro-esophageal reflux disease without esophagitis; K58.9 Irritable bowel syndrome, unspecified; M51.36 Other intervertebral disc degeneration, lumbar region; M48.061 Spinal stenosis, lumbar region without neurogenic claudication; F17.210 Nicotine dependence, cigarettes, uncomplicated; Z90.49 Acquired absence of other specified parts of digestive tract; Z71.6 Tobacco abuse counseling; Z79.4 Long term (current) use of insulin; Z79.899 Other long term (current) drug therapy ==

== ENCOUNTER 2024-02-07 19:19 | Emergency (ER) | payer OTHER ==
[~2024-02-07] VITALS: Ht 185.4 cm; Wt 104.3 kg
[2024-02-07] MEDS ORDERED: HYDROmorphONE Hydrochloride 1 MG/ML SYR IV ONE ×2 (19:55→22:20)
[2024-02-07] MEDS ORDERED: IOHEXOL 300 MG/ML 100 ML VIAL IV ONE (20:00)
[2024-02-07 21:14] LABS: BASO % 0.4 % (0.0-1.0); EOS # 0.2 10*3/uL (0.0-0.4); EOS % 2.4 % (1.0-4.0); HEMATOCRIT 35.8 % (42.0-52.0); LYMPH # 1.4 10*3/uL (1.3-4.4); MEAN CELL VOLUME 86.9 fl (80.0-94.0); MEAN CORPUSCULAR HGB 29.1 pg (27.0-31.0); MEAN CORPUSCULAR HGB CONC 33.5 g/dl (33.0-37.0); MONO # 0.7 10*3/uL (0.1-1.0); MONO % 9.5 % (3.0-9.0); NEUT % 68.6 % (47.0-73.0); PLATELET COUNT AUTOMATED 257 10*3/uL (130-400); RED BLOOD COUNT 4.12 10*6/uL (4.50-5.90); RED CELL DISTRI WIDTH 12.1 % (0-14.5); WHITE BLOOD COUNT 7.4 10*3/uL (4.8-10.8)
[2024-02-07 21:31] LABS: ACT PARTIAL THROMBO TIME 28.8 SECONDS (20.0-32.1)
[2024-02-07 21:32] LABS: ALKALINE PHOSPHATASE 108 U/L (46-116); BUN 7 mg/dl (9-23); CHLORIDE 102 mmol/L (98-107); POTASSIUM 3.8 mmol/L (3.4-5.1); SGPT/ALT 13 U/L (5-49)
[2024-02-07 22:50] LABS: BILIRUBIN Negative (Negative); BLOOD Negative (Negative); CLARITY Clear (Clear); COLOR Yellow (Yellow); GLUCOSE 1+ (Negative); KETONE Negative (Negative); LEUKO ESTERASE Negative (Negative); NITRITE Negative (Negative); SPECIFIC GRAVITY 1.025 (1.001-1.030)
[2024-02-07 23:08] LABS: WBC 0-2 wbc/hpf (0-5)
[2024-02-07 23:22] VITALS: BP 118/59
== END 2024-02-08 02:02 | disposition left against medical advice (07) ==
LOC: ED 19:19
PROVIDERS: Nurse Practitioner Family
DX: S34.21XA Injury of nerve root of lumbar spine, initial encounter (principal); G89.18 Other acute postprocedural pain; E87.1 Hypo-osmolality and hyponatremia; K21.9 Gastro-esophageal reflux disease without esophagitis; E10.65 Type 1 diabetes mellitus with hyperglycemia; Z88.8 Allergy status to other drugs, medicaments and biological substances; E87.8 Other disorders of electrolyte and fluid balance, not elsewhere classified; E78.5 Hyperlipidemia, unspecified; J45.909 Unspecified asthma, uncomplicated; I10 Essential (primary) hypertension; Z53.29 Procedure and treatment not carried out because of patient's decision for other reasons; Z90.49 Acquired absence of other specified parts of digestive tract; Z98.890 Other specified postprocedural states; F17.200 Nicotine dependence, unspecified, uncomplicated; W01.0XXA Fall on same level from slipping, tripping and stumbling without subsequent striking against object, initial encounter; Y93.89 Activity, other specified; Y92.89 Other specified places as the place of occurrence of the external cause; Y99.8 Other external cause status

== ENCOUNTER → 2024-02-12 | Outpatient (CLI) | payer OTHER | END | disposition home or self-care (01) | LOC: WOUNDCARE 02:13 | PROVIDERS: ATTEND Nurse Practitioner Family | DX: T81.31XA Disruption of external operation (surgical) wound, not elsewhere classified, initial encounter (principal); S31.000A Unspecified open wound of lower back and pelvis without penetration into retroperitoneum, initial encounter; E11.51 Type 2 diabetes mellitus with diabetic peripheral angiopathy without gangrene; E11.65 Type 2 diabetes mellitus with hyperglycemia; I10 Essential (primary) hypertension; K21.9 Gastro-esophageal reflux disease without esophagitis; K50.90 Crohn's disease, unspecified, without complications; M48.061 Spinal stenosis, lumbar region without neurogenic claudication; E78.5 Hyperlipidemia, unspecified; F17.210 Nicotine dependence, cigarettes, uncomplicated; Z90.49 Acquired absence of other specified parts of digestive tract; Z79.4 Long term (current) use of insulin; Z79.899 Other long term (current) drug therapy; X58.XXXA Exposure to other specified factors, initial encounter; Y93.89 Activity, other specified; Y83.8 Other surgical procedures as the cause of abnormal reaction of the patient, or of later complication, without mention of misadventure at the time of the procedure; Y92.89 Other specified places as the place of occurrence of the external cause; Y99.8 Other external cause status ==

== ENCOUNTER 2024-03-19 21:10 | Emergency (ER) | payer OTHER ==
[~2024-03-19] VITALS: Ht 182.8 cm; Wt 116.3 kg
[2024-03-19] MEDS ORDERED: INSULIN LI100 UNIT/1 SQ (21:22)
[2024-03-19] MEDS ORDERED: methylPREDNISolone sod succ 125 MG VIAL IV ONE (21:25)
[2024-03-19] MEDS ORDERED: Albuterol Sulf/Ipratropium 3 ML VIAL NEB ONE (21:25)
[2024-03-19 21:30] LABS: BASO % 0.3 % (0.0-1.0); EOS % 0.5 % (1.0-4.0); HEMATOCRIT 39.4 % (42.0-52.0); LYMPH # 1.5 10*3/uL (1.3-4.4); MEAN CELL VOLUME 85.1 fl (80.0-94.0); MEAN CORPUSCULAR HGB 29.2 pg (27.0-31.0); MEAN CORPUSCULAR HGB CONC 34.3 g/dl (33.0-37.0); MEAN PLATELET VOLUME 8.5 fl (9.6-12.3); MONO # 0.7 10*3/uL (0.1-1.0); MONO % 9.7 % (3.0-9.0); NEUT # 5.3 10*3/uL (2.3-7.9); NEUT % 69.2 % (47.0-73.0); PLATELET COUNT AUTOMATED 326 10*3/uL (130-400); RED BLOOD COUNT 4.63 10*6/uL (4.50-5.90); RED CELL DISTRI WIDTH 12.6 % (0-14.5); WHITE BLOOD COUNT 7.6 10*3/uL (4.8-10.8)
[2024-03-19 21:32] LABS: VENOUS PH 7.361 (7.37-7.45)
[2024-03-19 21:45] LABS: BUN 11 mg/dl (9-23); CHLORIDE 100 mmol/L (98-107); POTASSIUM 3.2 mmol/L (3.4-5.1)
[2024-03-19] MEDS ORDERED: POTASSIUM CHLORIDE 20 MEQ TAB PO ONE (21:55)
[2024-03-19 22:10] VITALS: BP 147/73
[2024-03-19] MEDS ORDERED: Ondansetron Hydrochloride 4 MG/2 ML VIAL IV ONE (22:25)
== END 2024-03-19 22:34 | disposition left against medical advice (07) ==
LOC: ED 21:10
PROVIDERS: Nurse Practitioner Family
DX: R06.02 Shortness of breath (principal); Z77.098 Contact with and (suspected) exposure to other hazardous, chiefly nonmedicinal, chemicals; Z53.29 Procedure and treatment not carried out because of patient's decision for other reasons; E87.1 Hypo-osmolality and hyponatremia; K21.9 Gastro-esophageal reflux disease without esophagitis; E78.5 Hyperlipidemia, unspecified; J45.909 Unspecified asthma, uncomplicated; I10 Essential (primary) hypertension; F17.200 Nicotine dependence, unspecified, uncomplicated; Z88.8 Allergy status to other drugs, medicaments and biological substances; Z90.49 Acquired absence of other specified parts of digestive tract; Z98.890 Other specified postprocedural states

== ENCOUNTER → 2024-07-11 | Outpatient (CLI) | payer OTHER ==
[~2024-07-11] MED LIST changes: +INSULIN LI100 UNIT/1 SQ
== END | disposition home or self-care (01) ==
LOC: WOUNDCARE 03:58
PROVIDERS: ATTEND Nurse Practitioner Family
DX: S81.812A Laceration without foreign body, left lower leg, initial encounter (principal); S80.811A Abrasion, right lower leg, initial encounter; E11.51 Type 2 diabetes mellitus with diabetic peripheral angiopathy without gangrene; E11.65 Type 2 diabetes mellitus with hyperglycemia; I10 Essential (primary) hypertension; K21.9 Gastro-esophageal reflux disease without esophagitis; M48.061 Spinal stenosis, lumbar region without neurogenic claudication; E78.5 Hyperlipidemia, unspecified; F17.210 Nicotine dependence, cigarettes, uncomplicated; Z90.49 Acquired absence of other specified parts of digestive tract; Z79.4 Long term (current) use of insulin; Z79.899 Other long term (current) drug therapy; W45.8XXA Other foreign body or object entering through skin, initial encounter; Y93.89 Activity, other specified; Y92.89 Other specified places as the place of occurrence of the external cause; Y99.8 Other external cause status

== ENCOUNTER → 2024-07-18 | Outpatient (CLI) | payer OTHER ==
[~2024-07-18] MED LIST changes: +COREG3.125 MG PO; +METOCLOPRAMIDE10 M1 PO; +PEPCID20 MG PO
== END | disposition home or self-care (01) ==
LOC: WOUNDCARE 00:49
PROVIDERS: ATTEND Nurse Practitioner Family
DX: S81.812D Laceration without foreign body, left lower leg, subsequent encounter (principal); S80.811D Abrasion, right lower leg, subsequent encounter; E11.51 Type 2 diabetes mellitus with diabetic peripheral angiopathy without gangrene; E11.65 Type 2 diabetes mellitus with hyperglycemia; I10 Essential (primary) hypertension; K21.9 Gastro-esophageal reflux disease without esophagitis; M48.061 Spinal stenosis, lumbar region without neurogenic claudication; E78.5 Hyperlipidemia, unspecified; F17.210 Nicotine dependence, cigarettes, uncomplicated; Z90.49 Acquired absence of other specified parts of digestive tract; Z79.4 Long term (current) use of insulin; Z79.899 Other long term (current) drug therapy; W45.8XXD Other foreign body or object entering through skin, subsequent encounter

== ENCOUNTER 2024-07-25 10:08 | Emergency (ER) | payer OTHER ==
[~2024-07-25] VITALS: Ht 177.8 cm; Wt 98.4 kg
[2024-07-25 10:17] VITALS: BP 153/81
[2024-07-25 10:40] LABS: BASO % 0.5 % (0.0-1.0); EOS % 0.6 % (1.0-4.0); HEMATOCRIT 41.7 % (42.0-52.0); LYMPH # 1.1 10*3/uL (1.3-4.4); LYMPH % 17.1 % (27.0-41.0); MEAN CELL VOLUME 83.4 fl (80.0-94.0); MEAN CORPUSCULAR HGB 28.4 pg (27.0-31.0); MEAN CORPUSCULAR HGB CONC 34.1 g/dl (33.0-37.0); MEAN PLATELET VOLUME 9.2 fl (9.6-12.3); MONO # 0.7 10*3/uL (0.1-1.0); MONO % 11.1 % (3.0-9.0); NEUT # 4.4 10*3/uL (2.3-7.9); NEUT % 70.4 % (47.0-73.0); PLATELET COUNT AUTOMATED 281 10*3/uL (130-400); RED CELL DISTRI WIDTH 12.3 % (0-14.5); WHITE BLOOD COUNT 6.2 10*3/uL (4.8-10.8)
[2024-07-25 10:55] LABS: BUN 11 mg/dl (9-23); CHLORIDE 101 mmol/L (98-107); POTASSIUM 3.8 mmol/L (3.4-5.1)
[2024-07-25] MEDS ORDERED: GLYCERIN 1 SUPP SUPP R ONE (12:40)
[2024-07-25] MEDS ORDERED: MAGNESIUM CITRATE 296 ML BOT PO ONE (12:40)
== END 2024-07-25 13:02 | disposition home or self-care (01) ==
LOC: ED 10:08
PROVIDERS: Internal Medicine
DX: K59.00 Constipation, unspecified (principal); R11.2 Nausea with vomiting, unspecified; J45.909 Unspecified asthma, uncomplicated; I10 Essential (primary) hypertension; E11.9 Type 2 diabetes mellitus without complications; K21.9 Gastro-esophageal reflux disease without esophagitis; F17.200 Nicotine dependence, unspecified, uncomplicated; Z88.5 Allergy status to narcotic agent; Z88.8 Allergy status to other drugs, medicaments and biological substances; Z90.49 Acquired absence of other specified parts of digestive tract; Z98.890 Other specified postprocedural states

== ENCOUNTER → 2024-07-25 | Outpatient (CLI) | payer OTHER | END | disposition home or self-care (01) | LOC: WOUNDCARE 02:07 | PROVIDERS: ATTEND Nurse Practitioner Family | DX: S81.812D Laceration without foreign body, left lower leg, subsequent encounter (principal); E11.51 Type 2 diabetes mellitus with diabetic peripheral angiopathy without gangrene; E11.65 Type 2 diabetes mellitus with hyperglycemia; I10 Essential (primary) hypertension; K21.9 Gastro-esophageal reflux disease without esophagitis; M48.061 Spinal stenosis, lumbar region without neurogenic claudication; E78.5 Hyperlipidemia, unspecified; F17.210 Nicotine dependence, cigarettes, uncomplicated; Z90.49 Acquired absence of other specified parts of digestive tract; Z79.4 Long term (current) use of insulin; Z79.899 Other long term (current) drug therapy; W45.8XXD Other foreign body or object entering through skin, subsequent encounter ==

== ENCOUNTER → 2024-08-01 | Outpatient (CLI) | payer OTHER | END | disposition home or self-care (01) | LOC: WOUNDCARE 02:56 | PROVIDERS: ATTEND Nurse Practitioner Family | DX: S81.812D Laceration without foreign body, left lower leg, subsequent encounter (principal); E11.51 Type 2 diabetes mellitus with diabetic peripheral angiopathy without gangrene; E11.65 Type 2 diabetes mellitus with hyperglycemia; I10 Essential (primary) hypertension; K21.9 Gastro-esophageal reflux disease without esophagitis; M48.061 Spinal stenosis, lumbar region without neurogenic claudication; E78.5 Hyperlipidemia, unspecified; F17.210 Nicotine dependence, cigarettes, uncomplicated; Z90.49 Acquired absence of other specified parts of digestive tract; Z79.4 Long term (current) use of insulin; Z79.899 Other long term (current) drug therapy; W54.8XXD Other contact with dog, subsequent encounter ==

== ENCOUNTER → 2024-08-12 | Outpatient (CLI) | payer OTHER | END | disposition home or self-care (01) | LOC: WOUNDCARE 01:54 | PROVIDERS: ATTEND Nurse Practitioner Family | DX: S81.812D Laceration without foreign body, left lower leg, subsequent encounter (principal); E11.622 Type 2 diabetes mellitus with other skin ulcer; L97.822 Non-pressure chronic ulcer of other part of left lower leg with fat layer exposed; E11.51 Type 2 diabetes mellitus with diabetic peripheral angiopathy without gangrene; E11.65 Type 2 diabetes mellitus with hyperglycemia; I10 Essential (primary) hypertension; K21.9 Gastro-esophageal reflux disease without esophagitis; M48.061 Spinal stenosis, lumbar region without neurogenic claudication; E78.5 Hyperlipidemia, unspecified; F17.210 Nicotine dependence, cigarettes, uncomplicated; Z90.49 Acquired absence of other specified parts of digestive tract; Z79.4 Long term (current) use of insulin; Z79.899 Other long term (current) drug therapy; X58.XXXD Exposure to other specified factors, subsequent encounter ==

== ENCOUNTER → 2024-08-19 | Outpatient (CLI) | payer OTHER | END | disposition home or self-care (01) | LOC: WOUNDCARE 08-18 03:09 | PROVIDERS: ATTEND Nurse Practitioner Family | DX: S81.812D Laceration without foreign body, left lower leg, subsequent encounter (principal); E11.622 Type 2 diabetes mellitus with other skin ulcer; L97.822 Non-pressure chronic ulcer of other part of left lower leg with fat layer exposed; E11.51 Type 2 diabetes mellitus with diabetic peripheral angiopathy without gangrene; E11.65 Type 2 diabetes mellitus with hyperglycemia; I10 Essential (primary) hypertension; K21.9 Gastro-esophageal reflux disease without esophagitis; M48.061 Spinal stenosis, lumbar region without neurogenic claudication; E78.5 Hyperlipidemia, unspecified; F17.210 Nicotine dependence, cigarettes, uncomplicated; Z90.49 Acquired absence of other specified parts of digestive tract; Z79.4 Long term (current) use of insulin; Z79.899 Other long term (current) drug therapy; X58.XXXD Exposure to other specified factors, subsequent encounter ==

== ENCOUNTER → 2024-08-25 | Outpatient (CLI) | payer OTHER | END | disposition home or self-care (01) | LOC: WOUNDCARE 10:41 | PROVIDERS: ATTEND Nurse Practitioner Family | DX: S81.812D Laceration without foreign body, left lower leg, subsequent encounter (principal); E11.622 Type 2 diabetes mellitus with other skin ulcer; L97.822 Non-pressure chronic ulcer of other part of left lower leg with fat layer exposed; E11.51 Type 2 diabetes mellitus with diabetic peripheral angiopathy without gangrene; E11.65 Type 2 diabetes mellitus with hyperglycemia; I10 Essential (primary) hypertension; K21.9 Gastro-esophageal reflux disease without esophagitis; M48.061 Spinal stenosis, lumbar region without neurogenic claudication; E78.5 Hyperlipidemia, unspecified; F17.210 Nicotine dependence, cigarettes, uncomplicated; Z90.49 Acquired absence of other specified parts of digestive tract; Z79.4 Long term (current) use of insulin; Z79.899 Other long term (current) drug therapy; X58.XXXD Exposure to other specified factors, subsequent encounter ==

== ENCOUNTER → 2024-09-09 | Outpatient (CLI) | payer OTHER | END | disposition home or self-care (01) | LOC: EDSTATUS 08:28 → WOUNDCARE 08:29 | PROVIDERS: ATTEND Nurse Practitioner Family | DX: S81.812D Laceration without foreign body, left lower leg, subsequent encounter (principal); E11.622 Type 2 diabetes mellitus with other skin ulcer; L97.822 Non-pressure chronic ulcer of other part of left lower leg with fat layer exposed; E11.51 Type 2 diabetes mellitus with diabetic peripheral angiopathy without gangrene; E11.65 Type 2 diabetes mellitus with hyperglycemia; I10 Essential (primary) hypertension; K21.9 Gastro-esophageal reflux disease without esophagitis; M48.061 Spinal stenosis, lumbar region without neurogenic claudication; E78.5 Hyperlipidemia, unspecified; F17.210 Nicotine dependence, cigarettes, uncomplicated; Z90.49 Acquired absence of other specified parts of digestive tract; Z79.4 Long term (current) use of insulin; Z79.899 Other long term (current) drug therapy; X58.XXXD Exposure to other specified factors, subsequent encounter ==

== ENCOUNTER 2024-09-15 17:00 | Emergency (ER) | payer OTHER ==
[~2024-09-15] VITALS: Ht 180.3 cm; Wt 104.3 kg
[2024-09-15 17:06] VITALS: BP 147/126
[2024-09-15 17:21] LABS: BASO % 0.3 % (0.0-1.0); EOS # 0.1 10*3/uL (0.0-0.4); EOS % 0.4 % (1.0-4.0); HEMATOCRIT 49.4 % (42.0-52.0); MEAN CELL VOLUME 85.8 fl (80.0-94.0); MEAN CORPUSCULAR HGB 28.8 pg (27.0-31.0); MEAN CORPUSCULAR HGB CONC 33.6 g/dl (33.0-37.0); MEAN PLATELET VOLUME 9.1 fl (9.6-12.3); MONO # 0.6 10*3/uL (0.1-1.0); MONO % 5.1 % (3.0-9.0); NEUT # 10.6 10*3/uL (2.3-7.9); NEUT % 87.7 % (47.0-73.0); PLATELET COUNT AUTOMATED 336 10*3/uL (130-400); RED BLOOD COUNT 5.76 10*6/uL (4.50-5.90); RED CELL DISTRI WIDTH 12.4 % (0-14.5); WHITE BLOOD COUNT 12.1 10*3/uL (4.8-10.8)
[2024-09-15 17:46] LABS: ALKALINE PHOSPHATASE 178 U/L (46-116); BUN 13 mg/dl (9-23); CHLORIDE 100 mmol/L (98-107); LIPASE 25 U/L (12-53); POTASSIUM 4.6 mmol/L (3.4-5.1); SGPT/ALT 18 U/L (5-49)
[2024-09-15 17:47] LABS: ETHYL ALCOHOL < 3.0 mg/dl (<3)
== END 2024-09-15 17:41 | disposition left against medical advice (07) ==
LOC: ED 17:00
PROVIDERS: Internal Medicine
DX: E11.649 Type 2 diabetes mellitus with hypoglycemia without coma (principal); Z53.29 Procedure and treatment not carried out because of patient's decision for other reasons; I10 Essential (primary) hypertension; J45.909 Unspecified asthma, uncomplicated; K21.9 Gastro-esophageal reflux disease without esophagitis; F17.200 Nicotine dependence, unspecified, uncomplicated; Z88.5 Allergy status to narcotic agent; Z88.8 Allergy status to other drugs, medicaments and biological substances; Z90.49 Acquired absence of other specified parts of digestive tract; Z98.890 Other specified postprocedural states

== ENCOUNTER → 2024-10-26 | Outpatient (CLI) | payer OTHER | END | disposition home or self-care (01) | LOC: WOUNDCARE 01:26 | PROVIDERS: ATTEND Nurse Practitioner Family | DX: E11.621 Type 2 diabetes mellitus with foot ulcer (principal); L97.521 Non-pressure chronic ulcer of other part of left foot limited to breakdown of skin; E11.622 Type 2 diabetes mellitus with other skin ulcer; L97.821 Non-pressure chronic ulcer of other part of left lower leg limited to breakdown of skin; S81.812D Laceration without foreign body, left lower leg, subsequent encounter; E11.51 Type 2 diabetes mellitus with diabetic peripheral angiopathy without gangrene; E78.5 Hyperlipidemia, unspecified; M48.061 Spinal stenosis, lumbar region without neurogenic claudication; M51.369 Other intervertebral disc degeneration, lumbar region without mention of lumbar back pain or lower extremity pain; K21.9 Gastro-esophageal reflux disease without esophagitis; K58.9 Irritable bowel syndrome, unspecified; F17.210 Nicotine dependence, cigarettes, uncomplicated; Z90.49 Acquired absence of other specified parts of digestive tract; Z98.890 Other specified postprocedural states; Z79.4 Long term (current) use of insulin; Z79.899 Other long term (current) drug therapy; X58.XXXD Exposure to other specified factors, subsequent encounter ==

== ENCOUNTER 2024-10-27 15:57 | Emergency (ER) | payer OTHER ==
[~2024-10-27] VITALS: Ht 182.8 cm; Wt 99.8 kg
[2024-10-27 16:38] VITALS: BP 135/81
[2024-10-27] MEDS ORDERED: SODIUM CHLORIDE 0.9% 1,000 ML IV ONE (16:45)
[2024-10-27] MEDS ORDERED: Ondansetron Hydrochloride 4 MG/2 ML VIAL IV ONE (16:50)
[2024-10-27 17:21] LABS: VENOUS BLOOD GAS O2 SAT 75.7 % (60.0-85.0)
[2024-10-27 17:22] LABS: BASO % 0.2 % (0.0-1.0); HEMATOCRIT 47.1 % (42.0-52.0); MEAN CELL VOLUME 81.9 fl (80.0-94.0); MEAN CORPUSCULAR HGB 28.7 pg (27.0-31.0); MEAN PLATELET VOLUME 9.1 fl (9.6-12.3); MONO % 8.4 % (3.0-9.0); NEUT # 9.2 10*3/uL (2.3-7.9); NEUT % 79.5 % (47.0-73.0); PLATELET COUNT AUTOMATED 386 10*3/uL (130-400); RED BLOOD COUNT 5.75 10*6/uL (4.50-5.90); RED CELL DISTRI WIDTH 11.8 % (0-14.5); WHITE BLOOD COUNT 11.5 10*3/uL (4.8-10.8)
[2024-10-27 17:42] LABS: ALKALINE PHOSPHATASE 178 U/L (46-116); BUN 25 mg/dl (9-23); CHLORIDE 97 mmol/L (98-107); LIPASE 27 U/L (12-53); POTASSIUM 4.1 mmol/L (3.4-5.1); SGPT/ALT 16 U/L (5-49); TOTAL PROTEIN 8.8 gm/dL (6.0-8.0)
[2024-10-27 18:27] LABS: BILIRUBIN Negative (Negative); BLOOD Negative (Negative); CLARITY Clear (Clear); COLOR Yellow (Yellow); GLUCOSE 3+ (Negative); KETONE 3+ (Negative); LEUKO ESTERASE Negative (Negative); NITRITE Negative (Negative); SPECIFIC GRAVITY >= 1.030 (1.001-1.030); UROBILINOGEN 0.2 E.U./dl (0.0-1.0)
[2024-10-27 19:09] LABS: MUCOUS 1+
== END 2024-10-27 19:08 | disposition left against medical advice (07) ==
LOC: ED 15:57
PROVIDERS: Physician Assistant Medical
DX: E11.65 Type 2 diabetes mellitus with hyperglycemia (principal); Z20.822 Contact with and (suspected) exposure to COVID-19; K21.9 Gastro-esophageal reflux disease without esophagitis; E78.5 Hyperlipidemia, unspecified; R11.2 Nausea with vomiting, unspecified; Z53.29 Procedure and treatment not carried out because of patient's decision for other reasons; H53.8 Other visual disturbances; J45.909 Unspecified asthma, uncomplicated; I10 Essential (primary) hypertension; F17.200 Nicotine dependence, unspecified, uncomplicated; Z88.8 Allergy status to other drugs, medicaments and biological substances; Z88.5 Allergy status to narcotic agent; Z90.49 Acquired absence of other specified parts of digestive tract; Z98.890 Other specified postprocedural states; Z79.899 Other long term (current) drug therapy

== ENCOUNTER 2024-10-31 20:38 | Emergency (ER) | payer OTHER ==
[~2024-10-31] VITALS: Ht 182.8 cm; Wt 99.8 kg
[2024-10-31 21:11] LABS: BASO % 0.3 % (0.0-1.0); EOS % 0.3 % (1.0-4.0); HEMATOCRIT 41.1 % (42.0-52.0); MEAN CELL VOLUME 84.9 fl (80.0-94.0); MEAN CORPUSCULAR HGB 28.9 pg (27.0-31.0); MEAN CORPUSCULAR HGB CONC 34.1 g/dl (33.0-37.0); MEAN PLATELET VOLUME 9.2 fl (9.6-12.3); MONO # 0.6 10*3/uL (0.1-1.0); MONO % 7.4 % (3.0-9.0); NEUT # 5.9 10*3/uL (2.3-7.9); NEUT % 74.8 % (47.0-73.0); PLATELET COUNT AUTOMATED 267 10*3/uL (130-400); RED BLOOD COUNT 4.84 10*6/uL (4.50-5.90); RED CELL DISTRI WIDTH 11.9 % (0-14.5); WHITE BLOOD COUNT 7.9 10*3/uL (4.8-10.8)
[2024-10-31 21:37] LABS: ALKALINE PHOSPHATASE 153 U/L (46-116); BUN 10 mg/dl (9-23); CHLORIDE 98 mmol/L (98-107); POTASSIUM 4.1 mmol/L (3.4-5.1); SGPT/ALT 10 U/L (5-49); TOTAL PROTEIN 7.5 gm/dL (6.0-8.0)
[2024-10-31] MEDS ORDERED: SODIUM CHLORIDE 0.9% 1,000 ML IV ONE ×2 (21:55→23:55)
[2024-10-31] MEDS ORDERED: INSULIN REGULAR, HUMAN 1 UNIT/0.01 ML IV ONE ×2 (21:55→23:55)
[2024-10-31] MEDS ORDERED: Ondansetron Hydrochloride 4 MG/2 ML VIAL IV ONE (21:55)
[2024-10-31] MEDS ORDERED: ACETAMINOPHEN 325 MG TAB PO ONE (23:10)
[2024-10-31] MEDS ORDERED: MORPHINE Sulfate 2 MG/ML SYR IV ONE (23:50)
[2024-11-01 00:40] LABS: BILIRUBIN Negative (Negative); BLOOD Negative (Negative); CLARITY Clear (Clear); COLOR Yellow (Yellow); GLUCOSE 3+ (Negative); KETONE 2+ (Negative); LEUKO ESTERASE Negative (Negative); NITRITE Negative (Negative); PH 5.5 (4.5-8.0); SPECIFIC GRAVITY >= 1.030 (1.001-1.030); UROBILINOGEN 0.2 E.U./dl (0.0-1.0)
[2024-11-01 01:06] LABS: BACTERIA TRACE
[2024-11-01 01:50] VITALS: BP 136/74
== END 2024-11-01 02:03 | disposition home or self-care (01) ==
LOC: ED 20:38
PROVIDERS: Emergency Medicine
DX: E10.65 Type 1 diabetes mellitus with hyperglycemia (principal); R11.10 Vomiting, unspecified; E87.5 Hyperkalemia; E87.1 Hypo-osmolality and hyponatremia; K21.9 Gastro-esophageal reflux disease without esophagitis; E78.5 Hyperlipidemia, unspecified; J45.909 Unspecified asthma, uncomplicated; Z88.8 Allergy status to other drugs, medicaments and biological substances; Z88.5 Allergy status to narcotic agent; Z90.49 Acquired absence of other specified parts of digestive tract; Z98.890 Other specified postprocedural states

== ENCOUNTER → 2024-11-02 | Outpatient (CLI) | payer OTHER | END | disposition home or self-care (01) | LOC: WOUNDCARE 12:26 | PROVIDERS: ATTEND Nurse Practitioner Family | DX: T25.312A Burn of third degree of left ankle, initial encounter (principal); T24.232A Burn of second degree of left lower leg, initial encounter; T31.0 Burns involving less than 10% of body surface; S81.812D Laceration without foreign body, left lower leg, subsequent encounter; E11.622 Type 2 diabetes mellitus with other skin ulcer; L97.821 Non-pressure chronic ulcer of other part of left lower leg limited to breakdown of skin; E11.51 Type 2 diabetes mellitus with diabetic peripheral angiopathy without gangrene; I10 Essential (primary) hypertension; E78.5 Hyperlipidemia, unspecified; K21.9 Gastro-esophageal reflux disease without esophagitis; K58.9 Irritable bowel syndrome, unspecified; M48.061 Spinal stenosis, lumbar region without neurogenic claudication; F17.210 Nicotine dependence, cigarettes, uncomplicated; Z90.49 Acquired absence of other specified parts of digestive tract; Z98.890 Other specified postprocedural states; Z79.4 Long term (current) use of insulin; Z79.899 Other long term (current) drug therapy; X58.XXXD Exposure to other specified factors, subsequent encounter; X08.8XXA Exposure to other specified smoke, fire and flames, initial encounter; Y93.89 Activity, other specified; Y92.89 Other specified places as the place of occurrence of the external cause; Y99.8 Other external cause status ==

== ENCOUNTER 2024-11-06 13:43 | Emergency (ER) | payer OTHER ==
[~2024-11-06] VITALS: Ht 182.8 cm; Wt 97.5 kg
[2024-11-06 14:00] VITALS: BP 145/86
[2024-11-06] MEDS ORDERED: SSD25 GM T (14:01)
[2024-11-06 14:31] LABS: BASO % 0.3 % (0.0-1.0); EOS % 0.2 % (1.0-4.0); HEMATOCRIT 44.3 % (42.0-52.0); MEAN CELL VOLUME 86.5 fl (80.0-94.0); MEAN CORPUSCULAR HGB 28.9 pg (27.0-31.0); MEAN CORPUSCULAR HGB CONC 33.4 g/dl (33.0-37.0); MEAN PLATELET VOLUME 9.3 fl (9.6-12.3); MONO # 0.7 10*3/uL (0.1-1.0); MONO % 7.2 % (3.0-9.0); NEUT % 79.1 % (47.0-73.0); PLATELET COUNT AUTOMATED 258 10*3/uL (130-400); RED BLOOD COUNT 5.12 10*6/uL (4.50-5.90); WHITE BLOOD COUNT 10.1 10*3/uL (4.8-10.8)
[2024-11-06 14:47] LABS: BUN 9 mg/dl (9-23); CHLORIDE 99 mmol/L (98-107); POTASSIUM 4.2 mmol/L (3.4-5.1)
[2024-11-06] MEDS ORDERED: Acetaminophen/Hydrocodone 5 MG/325 MG TABLET PO ONE (15:15)
[2024-11-06] MEDS ORDERED: VIBRAMYCIN100 MG PO (15:40)
== END 2024-11-06 15:48 | disposition home or self-care (01) ==
LOC: ED 13:43
PROVIDERS: Physician Assistant Medical
DX: L03.116 Cellulitis of left lower limb (principal); E10.9 Type 1 diabetes mellitus without complications; J45.909 Unspecified asthma, uncomplicated; I10 Essential (primary) hypertension; K21.9 Gastro-esophageal reflux disease without esophagitis; F17.200 Nicotine dependence, unspecified, uncomplicated; Z88.5 Allergy status to narcotic agent; Z88.8 Allergy status to other drugs, medicaments and biological substances; Z90.49 Acquired absence of other specified parts of digestive tract; Z98.890 Other specified postprocedural states

== ENCOUNTER → 2024-11-09 | Outpatient (CLI) | payer OTHER ==
[~2024-11-09] MED LIST changes: +SSD25 GM T
== END | disposition home or self-care (01) ==
LOC: WOUNDCARE 02:30
PROVIDERS: ATTEND Nurse Practitioner Family
DX: T25.312D Burn of third degree of left ankle, subsequent encounter (principal); T31.0 Burns involving less than 10% of body surface; S81.812D Laceration without foreign body, left lower leg, subsequent encounter; E11.622 Type 2 diabetes mellitus with other skin ulcer; L97.821 Non-pressure chronic ulcer of other part of left lower leg limited to breakdown of skin; E11.51 Type 2 diabetes mellitus with diabetic peripheral angiopathy without gangrene; E78.5 Hyperlipidemia, unspecified; I10 Essential (primary) hypertension; K21.9 Gastro-esophageal reflux disease without esophagitis; K58.9 Irritable bowel syndrome, unspecified; M48.061 Spinal stenosis, lumbar region without neurogenic claudication; M51.369 Other intervertebral disc degeneration, lumbar region without mention of lumbar back pain or lower extremity pain; F17.210 Nicotine dependence, cigarettes, uncomplicated; Z90.49 Acquired absence of other specified parts of digestive tract; Z98.890 Other specified postprocedural states; Z79.4 Long term (current) use of insulin; Z79.899 Other long term (current) drug therapy; X08.8XXD Exposure to other specified smoke, fire and flames, subsequent encounter; X58.XXXD Exposure to other specified factors, subsequent encounter

== ENCOUNTER → 2024-11-15 | Outpatient (CLI) | payer OTHER | END | disposition home or self-care (01) | LOC: WOUNDCARE 11-15 12:00 | PROVIDERS: ATTEND Nurse Practitioner Family | DX: T25.312D Burn of third degree of left ankle, subsequent encounter (principal); T24.232D Burn of second degree of left lower leg, subsequent encounter; T31.0 Burns involving less than 10% of body surface; E11.622 Type 2 diabetes mellitus with other skin ulcer; L97.821 Non-pressure chronic ulcer of other part of left lower leg limited to breakdown of skin; S81.812D Laceration without foreign body, left lower leg, subsequent encounter; E11.51 Type 2 diabetes mellitus with diabetic peripheral angiopathy without gangrene; F17.210 Nicotine dependence, cigarettes, uncomplicated; K21.9 Gastro-esophageal reflux disease without esophagitis; K50.90 Crohn's disease, unspecified, without complications; M48.061 Spinal stenosis, lumbar region without neurogenic claudication; E78.5 Hyperlipidemia, unspecified; Z90.49 Acquired absence of other specified parts of digestive tract; Z98.890 Other specified postprocedural states; Z79.4 Long term (current) use of insulin; Z79.899 Other long term (current) drug therapy; X58.XXXD Exposure to other specified factors, subsequent encounter; X08.8XXD Exposure to other specified smoke, fire and flames, subsequent encounter ==

== ENCOUNTER → 2024-11-21 | Outpatient (CLI) | payer OTHER | END | disposition home or self-care (01) | LOC: WOUNDCARE 00:34 | PROVIDERS: ATTEND Nurse Practitioner Family | DX: T25.312D Burn of third degree of left ankle, subsequent encounter (principal); T24.232D Burn of second degree of left lower leg, subsequent encounter; T31.0 Burns involving less than 10% of body surface; S81.812D Laceration without foreign body, left lower leg, subsequent encounter; E11.622 Type 2 diabetes mellitus with other skin ulcer; L97.822 Non-pressure chronic ulcer of other part of left lower leg with fat layer exposed; E11.51 Type 2 diabetes mellitus with diabetic peripheral angiopathy without gangrene; I10 Essential (primary) hypertension; K21.9 Gastro-esophageal reflux disease without esophagitis; K50.90 Crohn's disease, unspecified, without complications; E78.5 Hyperlipidemia, unspecified; M48.061 Spinal stenosis, lumbar region without neurogenic claudication; F17.210 Nicotine dependence, cigarettes, uncomplicated; Z90.49 Acquired absence of other specified parts of digestive tract; Z98.890 Other specified postprocedural states; Z79.4 Long term (current) use of insulin; Z79.899 Other long term (current) drug therapy; X08.8XXD Exposure to other specified smoke, fire and flames, subsequent encounter; X58.XXXD Exposure to other specified factors, subsequent encounter ==

== ENCOUNTER 2024-11-23 19:34 | Emergency (ER) | payer OTHER ==
[~2024-11-23] VITALS: Ht 182.8 cm; Wt 95.3 kg
[2024-11-23 20:15] VITALS: BP 130/79
[2024-11-23 20:51] LABS: BASO % 0.3 % (0.0-1.0); EOS # 0.1 10*3/uL (0.0-0.4); EOS % 0.7 % (1.0-4.0); HEMATOCRIT 42.8 % (42.0-52.0); MEAN CELL VOLUME 85.6 fl (80.0-94.0); MEAN CORPUSCULAR HGB CONC 32.7 g/dl (33.0-37.0); MEAN PLATELET VOLUME 9.1 fl (9.6-12.3); MONO # 0.5 10*3/uL (0.1-1.0); MONO % 7.5 % (3.0-9.0); NEUT # 5.1 10*3/uL (2.3-7.9); NEUT % 73.5 % (47.0-73.0); PLATELET COUNT AUTOMATED 295 10*3/uL (130-400); WHITE BLOOD COUNT 6.9 10*3/uL (4.8-10.8)
[2024-11-23 21:35] LABS: BUN 13 mg/dl (9-23); CHLORIDE 96 mmol/L (98-107); POTASSIUM 4.2 mmol/L (3.4-5.1)
[2024-11-23] MEDS ORDERED: SODIUM CHLORIDE 0.9% 1,000 ML IV ONE ×2 (21:50→22:00)
[2024-11-23] MEDS ORDERED: INSULIN REGULAR, HUMAN 1 UNIT/0.01 ML IV ONE (21:50)
[2024-11-23] MEDS ORDERED: Ondansetron Hydrochloride 4 MG/2 ML VIAL IV ONE (22:00)
[2024-11-23] MEDS ORDERED: HYDROmorphONE Hydrochloride 0.5 MG/0.5 ML SYRINGE IV ONE (22:00)
== END 2024-11-23 22:17 | disposition left against medical advice (07) ==
LOC: ED 19:34
PROVIDERS: Internal Medicine
DX: T25.012D Burn of unspecified degree of left ankle, subsequent encounter (principal); E11.65 Type 2 diabetes mellitus with hyperglycemia; F17.200 Nicotine dependence, unspecified, uncomplicated; Z88.1 Allergy status to other antibiotic agents; Z88.6 Allergy status to analgesic agent; Z88.8 Allergy status to other drugs, medicaments and biological substances; Z79.2 Long term (current) use of antibiotics; Z79.4 Long term (current) use of insulin; Z79.899 Other long term (current) drug therapy; Z90.49 Acquired absence of other specified parts of digestive tract; Z98.890 Other specified postprocedural states; X08.8XXD Exposure to other specified smoke, fire and flames, subsequent encounter

== ENCOUNTER → 2024-11-24 | Outpatient (CLI) | payer OTHER | END | disposition home or self-care (01) | LOC: WOUNDCARE 08:54 | PROVIDERS: ATTEND Nurse Practitioner Family | DX: T24.232D Burn of second degree of left lower leg, subsequent encounter (principal); T31.0 Burns involving less than 10% of body surface; S81.812D Laceration without foreign body, left lower leg, subsequent encounter; E10.622 Type 1 diabetes mellitus with other skin ulcer; L97.821 Non-pressure chronic ulcer of other part of left lower leg limited to breakdown of skin; E10.51 Type 1 diabetes mellitus with diabetic peripheral angiopathy without gangrene; E78.5 Hyperlipidemia, unspecified; K21.9 Gastro-esophageal reflux disease without esophagitis; K50.90 Crohn's disease, unspecified, without complications; M79.672 Pain in left foot; M51.369 Other intervertebral disc degeneration, lumbar region without mention of lumbar back pain or lower extremity pain; F17.210 Nicotine dependence, cigarettes, uncomplicated; Z79.4 Long term (current) use of insulin; Z79.899 Other long term (current) drug therapy; Z90.49 Acquired absence of other specified parts of digestive tract; Z98.890 Other specified postprocedural states; X08.8XXD Exposure to other specified smoke, fire and flames, subsequent encounter; X58.XXXD Exposure to other specified factors, subsequent encounter ==

== ENCOUNTER 2024-12-01 12:45 | Emergency (ER) | payer OTHER ==
[2024-12-01 13:22] LABS: BASO % 0.3 % (0.0-1.0); EOS % 0.3 % (1.0-4.0); HEMATOCRIT 44.2 % (42.0-52.0); MEAN CELL VOLUME 82.6 fl (80.0-94.0); MEAN CORPUSCULAR HGB CONC 33.9 g/dl (33.0-37.0); MEAN PLATELET VOLUME 9.3 fl (9.6-12.3); MONO # 0.5 10*3/uL (0.1-1.0); MONO % 8.4 % (3.0-9.0); NEUT # 4.4 10*3/uL (2.3-7.9); NEUT % 72.5 % (47.0-73.0); PLATELET COUNT AUTOMATED 329 10*3/uL (130-400); RED BLOOD COUNT 5.35 10*6/uL (4.50-5.90); RED CELL DISTRI WIDTH 11.8 % (0-14.5); WHITE BLOOD COUNT 6.1 10*3/uL (4.8-10.8)
[2024-12-01 13:32] LABS: ACT PARTIAL THROMBO TIME 28.6 SECONDS (20.0-32.1)
[2024-12-01] MEDS ORDERED: Promethazine Hydrochloride 25 MG/ML VIAL IV ONE (13:40)
[2024-12-01] MEDS ORDERED: Lidocaine Hydrochloride 15 ML UDC PO ONE (13:40)
[2024-12-01] MEDS ORDERED: Lactated Ringer's Solution 1,000 ML IV SCH (13:40)
[2024-12-01] MEDS ORDERED: MG-AL HYDROXIDE/SIMETICONE 30 ML UDC PO ONE (13:40)
[2024-12-01 13:47] LABS: ALKALINE PHOSPHATASE 162 U/L (46-116); BUN 11 mg/dl (9-23); CHLORIDE 94 mmol/L (98-107); SGPT/ALT 8 U/L (5-49); TOTAL PROTEIN 8.2 gm/dL (6.0-8.0)
== END 2024-12-01 14:45 | disposition left against medical advice (07) ==
LOC: ED 12:45
PROVIDERS: Emergency Medicine
DX: R07.89 Other chest pain (principal); R10.84 Generalized abdominal pain; R11.2 Nausea with vomiting, unspecified; Z53.29 Procedure and treatment not carried out because of patient's decision for other reasons; F17.200 Nicotine dependence, unspecified, uncomplicated; Z88.8 Allergy status to other drugs, medicaments and biological substances; Z88.5 Allergy status to narcotic agent; Z90.49 Acquired absence of other specified parts of digestive tract; Z98.890 Other specified postprocedural states

== ENCOUNTER 2025-10-01 12:37 | Emergency (ER) | payer OTHER ==
[~2025-10-01] VITALS: Wt 90.7 kg
[~2025-10-01 12:37] MED LIST changes: +INSULIN LI100 UNIT/2 SC; +SINEMET 10-1001 EACH PO
[2025-10-01 12:43] VITALS: BP 126/86
== END 2025-10-01 13:56 | disposition left against medical advice (07) ==
LOC: ED 12:37
DX: R07.89 Other chest pain (principal); Z53.21 Procedure and treatment not carried out due to patient leaving prior to being seen by health care provider